=== PATIENT | female | born 1955 | race Caucasian/White ===

== ENCOUNTER 2022-01-11 10:13 | Outpatient (CLI) | payer MEDICARE, BC, SELFPAY ==
--- NOTE | 2022-01-11 10:15 | MR_ITS ---
Final Report Patient: ELLY HARRIS Facility:?[facility] Patient ID:?[id number] Site Patient ID:?[id number]. Site :?1955 Study:?MRI Head W/ and W/O Cont 15 cc DOTAREM-01/11/2022 12:25:42 PM Ordering Physician:?Daphne Juarez Final Report: INDICATION: Breast cancer. Staging. COMPARISON: Outside study 08/16/2017. TECHNIQUE: Multiplanar T1, T2, FLAIR and diffusion-weighted imaging. Post gadolinium T1 weighted sequences. FINDINGS: Normal brain parenchymal morphology. Scattered foci of T2/FLAIR signal hyperintense within the white matter again likely represents chronic small vessel ischemic changes or sequela migraine headache. Compared to the previous exam, there is a new 6 mm enhancing lesion of the inferior left frontal lobe (series 9, image 19) with surrounding vasogenic edema (series 6, image 19) concerning for new metastasis. No additional abnormal enhancement or enhancing lesions elsewhere. No intracranial hemorrhage. No abnormal ventricular dilatation. Intracranial vascular flow voids are preserved. No mass effect or midline shift. No restricted diffusion to suggest acute ischemia. Bilateral orbits are unremarkable. Normal appearing sella. Visualized paranasal sinuses and mastoid air cells are unremarkable. IMPRESSION: 1. No acute intracranial abnormality 2. 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 Associated surrounding vasogenic edema. 3. No additional abnormal enhancement or enhancing lesions elsewhere. 4. Normal brain parenchymal morphology. Scattered foci T2 signal within the white matter consistent with chronic small vessel ischemic changes or sequela of migraine headache Dictated by Bala Madrid MD @ 01/12/2022 7:52:29 AM (Electronic Signature)
== END 2022-01-11 10:14 | disposition home or self-care (01) ==
PROVIDERS: PCP Family Medicine; Visit Provider Internal Medicine Hematology & Oncology
DX: C50.212 Malignant neoplasm of upper-inner quadrant of left female breast (principal); C78.00 Secondary malignant neoplasm of unspecified lung
CPT/HCPCS: 70553; A9575

== ENCOUNTER 2022-01-13 10:30 | Outpatient (RCR) | payer MEDICARE, BC, SELFPAY ==
--- OUTSIDE RECORDS SUMMARY | 2022-01-07 09:32 | XMS_ITS | Continuity of Care Document ---
:1955 Author Care Team Providers Name Role Phone DO Lupe Garcia Primary Care Physician MD Candido Martel Admitting Physician Allergies, Adverse Reactions, Alerts Allergen Type Severity Reaction Last Updated Verified Status Adhesive Allergy Mild redness February 04, Yes Active 2019 Amoxicillin Allergy Moderate diarrhea May Yes Active 2020 Erythromycin Allergy Moderate NAUSEA June Yes Active 2017 Venlafaxine Allergy Moderate UNK June Yes Active 2017 Social History Smoking Status Status Start Date End Date Date of Observat ion Never smoked tobacco October 24, 2021 6:38pm (finding) Additional Data Assigned Sex Female Problems Active Problems Medical Problem Onset Date Status Breast cancer in female 1998 Active Medications Medication Status Dose Units Route Directions Qty Days Start End Ins tructions Date Date Acetaminophe Active 500-1 MG PO Every 6 100 n 000 Hours as needed Apixaban Active 5 MG PO Twice A Day 60 (Eliquis) 5 Mg TAB Benzonatate Active 200 MG PO Three Times 30 A Day as needed Carvedilol Active 12.5 MG PO Twice A Day 60 Cholecalcife Active 2000 UNIT PO Daily 100 rol (Vitamin D) 1,000 Unit TAB Fexofenadine Active 1 TAB PO Daily -Pseudoephed rine (Melba-D 24 Hour Allergy) 24 Hour TAB Fluticasone Active 2 SPRAY EACH Daily 1 Propionate NOSTR (Nasal) (Flonase Allergy Relief) 50 Mcg/Act SPR Levothyroxin Active 75 MCG PO Daily 30 e Sodium (Levothroid) 75 Mcg TAB Lisinopril Active 2.5 MG PO Daily 2.5 MG x 2 WEEKS DOSE INCREASE TO 5.0 MG ON 12/16 Loperamide Active 2 MG PO Every 1 24 MAX 16 MG/DAY Hcl Hour as needed Lorazepam Active 0.5 MG PO Twice A Day 20 Novembe i nsomnia due to dexamethasone or nausea, not controlled as needed r , with ond ansetron or prochlorperazine. Do not take at the 2020 same time as o pioids. Can be sedating. 11:26am Multiple Active 1 OR Daily Minerals W/ Vitamins (Citracal Plus) TAB Ondansetron Active 8 MG PO Three Times 30 Novembe Hcl A Day as r 29, (Ondansetron needed 2020 Odt) 8 Mg 11:22am TAB Oxycodone Active 1.25 MG PO Every 4 30 Hcl Hours as needed Pediatric Active 1 EA PO Multiple Vitamins W/ (Flintstones Plus Iron Mul) CHW Polyethylene Active 17 GM PO Daily 238 Not us ing Glycol 3350 (Miralax) 17 Gm POW Prochlorpera Active 10 MG PO Three Times 30 zine Maleate A Day as needed Acetaminophe Disconti 500 MG PO As Needed December n (Tylenol nued , Extra 2014 Strength) 2:10pm 500 Mg TAB Acetaminophe Disconti 325 MG PO As Needed Novemb n (Tylenol) nued er 325 Mg TAB 2005 4:08pm Acetaminophe Disconti 1-2 TAB PO Bedtime 100 Novembe Decemb start with one tablet for insomnia due to dexamethasone n/Diphenhydr nued r , er (chem o). If ineffective after 45-60 minutes, take one more amine Hcl 2020, tablet. (Tylenol Pm) 11:22am 2020 25 Mg/500 Mg 8:58am TAB Amoxicillin Disconti 1 TABLET PO Twice A Day 06 May No vemb & Pot nued , er Clavulanate 2009, (Augmentin) 12:25pm 2012 875 Mg/125 2:38pm Mg TAB Anastrozole Disconti 1 MG PO Daily October (Arimidex) 1 nued 3rd, Mg TAB 2017 8:49am Apixaban Disconti 5-10 MG PO .as Direc 74 Decemb 10 MG BID X 7 (Eliquis nued er DAYS THEN 5 MG Starter , BID Pack) 5 Mg 2020 TAB 8:58am Calcium Disconti 600 MG PO Daily Novemb Carbonate nued er (Calcium) , 600 Mg TAB 2020 10:08a m Carvedilol Disconti 3.125 MG PO Twice A Day 60 Novemb (Coreg) nued er 3.125 Mg TAB 2020 10:08a m Cholecalcife Disconti 2000 UNIT PO Daily 100 Februa rol (Vitamin nued ry D) 2,000 , Unit TAB 2015 3:35pm Cholecalcife Disconti 1000 UNIT OR Daily Novemb rol (Vitamin nued er D-1000) , 1,000 Unit 2012 TAB 2:38pm Dexamethason Disconti 4 MG PO Twice A Day 6 17 December Not taking e nued as needed 2021 9:10am Dexamethason Disconti 8 MG PO Habr6bnal 12 Decemb START DAY e nued er PRIOR TO CHEMO 2020 1:23pm Dexamethason Disconti 8 MG PO [id number] 12 Novembe Nove mb START DAY e nued r , er PRIOR TO CARMEN MO 2020, 12:29pm 2020 10:31a m Dulcolax Disconti 1 ID As Needed Decemb Suppository nued er 2020 8:58am Exemestane Disconti 25 MG PO Daily Februa (Aromasin) nued ry 25 Mg TAB 2013 11:16a m Fexofenadine Disconti 180 MG PO Daily 90 Novemb Hcl (Melba nued er Allergy) 180 1st, Mg TAB 2015 9:29am Fexofenadine Disconti 180 MG PO Daily 30 Februa Hcl nued ry 2014 3:01pm Fexofenadine Disconti 180 MG PO As Needed 30 Octobe Hcl nued r (Melba) 31, 180 Mg TAB 2005 1:42pm Fexofenadine Disconti 1 TAB PO Daily Novemb -Pseudoephed nued er rine , (Melba-D 2019 24 Hour 8:54am Allergy) 24 Hour TAB Hydrochlorot Disconti 12.5 MG PO Daily 30 Novemb hiazide nued er 2015 9:29am Ibuprofen Disconti 200-4 MG PO Every 6 January nued 00 Hours as , needed 2019 9:52am Ibuprofen Disconti 600 MG PO As Needed 1 Februa nued ry 2015 3:35pm Ibuprofen Disconti 400 MG PO Once 1 Novemb nued er 2012 2:38pm Ibuprofen Disconti 1 TABLET PO As Needed Novem nued er 2005 4:08pm Lactobacillu Disconti 1 OR Miriam s nued , (Probiotic) 2017 CAP 12:28p m Letrazole Disconti 2.5 MG Daily Novemb nued er 2012 2:38pm Letrozole Disconti 2.5 MG PO January (Femara) 2.5 nued , Mg TAB 2019 9:52am Levofloxacin Disconti 750 MG PO Daily 19 December nued 2021 9:10am Lidocaine Disconti 4 % EX Daily September Not Usi ng nued November use 1-2 pa tches daily. On for 12 hours, off for 12 2021 2021 hours. Do NOT apply heat over patches. 2:30pm 9:31am Lidocaine Disconti 4 % EX Daily September u se 1-2 patches daily. On for 12 hours, off for nued r , , hours. Do NO T apply heat over patches. 2020 2021 11:22am 2:30pm Loperamide Disconti 2 MG PO As Needed Novemb Hcl (Imodium nued er A-D) 2 Mg , 2020 10:30a m Loratadine Disconti 10 MG OR Daily December (Claritin) nued , 10 Mg CAP 2017 12:28p m Lorazepam Disconti 0.5 MG PO Three Times 90 Decemb nued A Day as er needed 2017 10:24a m Multiple Disconti 1 OR October Minerals W/ nued , Vitamins 2021 (Citracal 11:02a Plus) TAB m Naproxen Disconti 220 MG OR as needed December Sodium nued for , (Aleve) 220 Abdominal 2014 Mg CAP Pain 2:10pm Norethindron Disconti 1 EA PO Daily Novemb e-Ethinyl nued er Estradiol , () 2005 (Nortrel 4:08pm (28)) 1 Mg/0.035 Mg TAB Mcclv-2-Qzyb Disconti 500 MG PO Daily October Ethyl Esters nued , (Fish Oil) 2017 500 Mg CAP 8:49am Omeprazole Disconti 20 MG PO Daily December nued 2021 8:15am Ondansetron Disconti 8 MG PO Every 8 30 Novemb Hcl nued Hours as er needed 2020 11:22a m Ondansetron Disconti 8 MG PO Three Times 30 Decem b Hcl nued A Day as er (Ondansetron needed , Odt) 8 Mg 2017 TAB 10:24a m Palbociclib Disconti 75 MG PO Daily 21 Novemb DAYS 1-21, (Ibrance) 75 nued er EVERY 2 8 DAYS Mg CAP 2020 9:57am Prochlorpera Disconti 10 MG PO Every 4-6 30 Decemb PRN zine Maleate nued Hours as er Naus ea/vomitin needed , 2017 10:24a m Senna/Docusa Disconti 1 TAB PO Twice A Day 100 Dece mb te Sodium nued er (Senna S) , 8.6 Mg/50 Mg 2020 TAB 8:58am Vitamin E Disconti 400 UNIT PO Daily 100 Februa nued ry 2013 2:20pm Medical Equipment Device Date Implanted Device Details TECNIS IOL June 27, 2018 ROSA: [id number] Issuing Agency: [facility] Device Id: [id number] Expiration Date: 07-28-12 Serial Number: [id number] TECNIS IOL July 11, 2018 ROSA: [id number] Issuing Agency: [facility] Device Id: [id number] Expiration Date: 08-23-09 Serial Number: [id number] Relevant Diagnostic Tests and/or Laboratory Data Laboratory Results Test Date/Time Result Interpretation Reference Result Comment Performing Range Site White Blood December 02, 4.11 5.00-10.00 [facility] Count 2021 [address] [facility] 8:45am [facility] [address] Red Blood Count December 02, 4.48 3.90-5.03 [facility] 2021 [address] [facility] 8:45am [facility] [address] Hemoglobin December 02, 11.4 12.0-15.5 [facility] 2021 [address] [facility] 8:45am [place] [address] Hematocrit December 02, 37.4 34.9-44.5 [facility] 2021 [address] [facility] 8:45am [place] [address] Mean December 02, 84 82-98 [facility] Corpuscular 2021 [address] [facility] Volume 8:45am [place] [address] Mean December 02, 25 27-34 [facility] Corpuscular 2021 [address] [facility] Hemoglobin 8:45am [place] [address] Mean December 02, 31 32-36 [facility] Corpuscular 2021 [address] [facility] Hemoglobin 8:45am [place] [address] Concent Platelet Count December 02, 215 150-450 [facility] 2021 [address] [facility] 8:45am [place] [address] RDW Coefficient December 02, 17.0 11.5-15.3 [facility] of Variation 2021 1999 [email or web address] 8:45am [place] [address] Neutrophils (%) December 02, 66.1 50.0-70.0 [facility] (Auto) 2021 [address] [facility] 8:45am [place] [address] Lymphocytes (%) December 02, 22.9 25.0-45.0 [facility] (Auto) 2021 [address] [facility] 8:45am [place] [address] Monocytes (%) December 02, 7.8 0.00-11.0 [facility] (Auto) 2021 [address] [facility] 8:45am [place] [address] Eosinophils (%) December 02, 2.7 0.0-7.0 [facility] (Auto) 2021 [address] [facility] 8:45am [place] [address] Basophils (%) December 02, 0.5 0.0-3.0 [facility] (Auto) 2021 [address] [facility] 8:45am [place] [address] Immature December 02, 0.0 [facility] Granulocyte % 2021 [address] [facility] (Auto) 8:45am [place] [address] Neutrophils # December 02, 2.72 1.70-7.00 [facility] (Auto) 2021 [address] [facility] 8:45am [facility] [address] Lymphocytes # December 02, 0.94 0.90-2.90 [facility] (Auto) 2021 [address] [facility] 8:45am [facility] [address] Monocytes # December 02, 0.32 0.30-0.90 [facility] (Auto) 2021 [address] [facility] 8:45am [facility] [address] Eosinophils # December 02, 0.11 0.00-0.50 [facility] (Auto) 2021 [address] [facility] 8:45am [facility] [address] Basophils # December 02, 0.02 0.00-0.20 [facility] Lab (Auto) 2021 [address] [facility] 8:45am [facility] [address] Immature December 02, 0.00 [facility] Granulocyte # 2021 [address] [facility] (Auto) 8:45am [facility] [address] Random Glucose December 02, 128 60-115 [facility] 2021 [address] [facility] 8:45am [facility] [address] Blood Urea December 02, 12 7-30 [facility] Nitrogen 2021 [address] [facility] 8:45am [facility] [address] Creatinine December 02, 0.5 0.5-1.5 [facility] 2021 [address] [facility] 8:45am [facility] [address] Estimated December 02, 94.0287 [facility] Creatinine 2021 0 1999 [facility] [place] 8:45am [facility] [address] Sodium Level December 02, 137 135-149 [facility] 2021 [address] [facility] 8:45am [facility] [address] Potassium Level December 02, 3.5 3.6-5.1 [facility] 2021 [address] [facility] 8:45am [facility] [address] Chloride Level December 02, 100 96-114 [facility] 2021 [address] [facility] 8:45am [facility] [address] Carbon Dioxide December 02, 29 20-32 [facility] Level 2021 [address] [facility] 8:45am [facility] [address] Calcium Level December 02, 9.1 8.4-10.6 [facility] 2021 [address] [facility] 8:45am [facility] [address] Total Protein December 02, 6.5 6.0-8.3 The use of [facility] 2021 Eltrombopag, a [address] [facility] 8:45am [place] [address] stimulant used to treat thrombocytopenia and aplastic anemia, interferes with this measurement of total protein. A 5% bias has been observed. Albumin December 02, 3.7 3.3-5.0 [facility] 2021 [address] [facility] 8:45am [facility] [address] Total Bilirubin December 02, 0.4 0.1-1.5 [facility] 2021 [address] [facility] 8:45am [place] [address] Aspartate Amino December 02, 27 12-35 [facility] Transf 2021 [address] [facility] (AST/SGOT) 8:45[place] [address] Alanine December 02, 18 4-35 [facility] Aminotransferas 2021 [address] [facility] e (ALT/SGPT) 8:45am [place] [address] Alkaline December 02, 55 40-150 [facility] Phosphatase 2021 [address] [facility] 8:45am [place] [address] Advance Directives Advance Directive Response Recorded Date/Time Has patient completed a Yes October 24, 2021 6:38pm Health Care Directive? Insurance Providers Guarantor Donna Garcia Address [address] [address] [facility] [address] Contact Info. Home Phone: Payer Policy Id Coverage Id Subscriber's Subscriber Id Effective E xpiration Name Date Date Medicare [id number] Jose, [id number] 23 Donna Tubbs [facility] [id number] Jackson Garcia [id number] Donna Tubbs Encounters Encounter Location(s) Arrival/Admit Date Discharge/Depart Date Provider(s) Registered [place] December 27, 2021 [facility] 7:08am Plan of Treatment Future Tests Future scheduled test information is unavailable Pending Tests Pending diagnostic test information is unavailable Future Visits Future appointment information is unavailable Referrals to Other Providers Reason for Referral Start Provider Provider Contact Provider Address Referral Date Information Gretel Garcia Work Phone: DAVID ELKINS [facility] DO [address] [facility] 5 [phone] Clinic, Orthopedic & Fracture Future Procedures Procedure Name Scheduled Date CT Sinus/Maxilo W/O Future Medications Future medication information is unavailable Patient Instructions Abscess (ED)
--- NOTE | 2022-01-12 14:53 | URNOTE ---
Received request for prior auth for Aloxi ([id number]) and Enhertu ([id number]). Pt has Medicare and supplement. Prior auth is not required as services are based on medical necessity and follow medicare guidelines.
== END 2022-01-13 23:59 | disposition home or self-care (01) ==
LOC: CCIC 10:30
PROVIDERS: PCP Family Medicine; Visit Provider Nurse Practitioner Family
DX: C50.912 Malignant neoplasm of unspecified site of left female breast (principal); Z17.0 Estrogen receptor positive status [ER+]; G93.9 Disorder of brain, unspecified
CPT/HCPCS: 99212; 99215

== ENCOUNTER 2022-01-24 13:01 | Emergency (ER) | payer MEDICARE, BC, SELFPAY ==
[2022-01-24] VITALS (7 sets, daily range): BP systolic 95–148; BP diastolic 64–95; PULSE 77–88; RESP 12–18; TEMP 36.5; O2SAT 94–98; BMI 19.1
--- NOTE | 2022-01-24 14:58 | CRLHL7_ITS ---
For Patients: As a result of the 21st Century Cures Act, medical imaging exams and procedure reports are released immediately into your electronic medical record. You may view this report before your referring provider. If you have questions, please contact your health care provider. INDICATION: Abdominal pain and distention. History of cancer. COMPARISON: A remote PET-CT of April 04, 2019 TECHNIQUE: CT examination of the abdomen and pelvis was performed following the uneventful intravenous administration of 53 cc of Isovue 370. Thin section axial images were obtained from the lung bases through the pubic symphysis. Oral contrast was not administered. Please note that all CT scans at this facility use dose modulation, iterative reconstruction, and/or weight-based dosing when appropriate to reduce radiation dose to as low as reasonably achievable. FINDINGS: LUNG BASES: The heart size is normal at the lung bases.There is a small right effusion but the right lung base appears normal. There is diffuse masslike thickening the pleura at the left lung base with abnormal enhancement of the pleura and volume loss at the left lung base. This is likely neoplastic. LIVER/BILIARY SYSTEM:The liver is normal in size and configuration. There is no focal mass and there is no intra- or extra hepatic biliary ductal dilatation.The gall bladder appears normal. ADRENALS: The right adrenal gland is normal. There is nodularity of the left adrenal gland which is new since 2019 and may be malignant. This measures 2.8 x 1.8 centimeters on axial image 41 KIDNEYS, URETERS and BLADDER:The right kidney is unremarkable. There is a relatively large left renal cyst measuring 6.5 centimeters. No obstructive uropathy. The bladder appears normal. SPLEEN:Normal appearance. PANCREAS: Appears normal. RETROPERITONEUM and MESENTERY: There is no mass, adenopathy or aortic aneurysm. Atherosclerotic vascular calcifications GASTROINTESTINAL SYSTEM: Fecal retention without indication of mechanical obstruction. PELVIS: There is ascites in the abdomen and a specially in the pelvis and there is clearly visible tumor in the cul de sac. This is relatively diffuse but a focal mass on the right measures 4.4 x 5.0 centimeters. There is also a peritoneal carcinomatosis pattern with multiple nodules involving the omentum and peritoneal surfaces. This is consistent with metastatic disease. Somewhat unusual for breast cancer which is the patient`s primary. This pattern is usually associated with an intra-abdominal adenocarcinoma. OSSEOUS STRUCTURES and ABDOMINAL WALL: There is an age-appropriate appearance of the osseous structures.No significant abdominal wall defect. OTHER: No free fluid or free air. IMPRESSION: 1. 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 The lung finding is probably volume loss. There is a small right effusion with minimal right basilar atelectasis. 2. Mild ascites and masslike thickening of the peritoneal surfaces of the pelvis. Measurable mass is noted with the largest measuring 4.4 x 5.0 centimeters in the right pelvis. Elsewhere in the abdomen and pelvis, there is omental caking and peritoneal surface nodularity consistent with peritoneal carcinomatosis. 3. No obvious osseous metastatic disease 4. Left adrenal nodule suspect metastatic deposit 5. The carcinomatosis pattern is somewhat unusual for stage IV breast cancer though it is possible. The appearance is more reminiscent of an intra-abdominal adenocarcinoma. Please note that all CT scans at this facility use dose modulation, iterative reconstruction, and/or weight-based dosing when appropriate to reduce radiation dose to as low as reasonably achievable. Dictated by Miguel Hinds MD @ 01/24/2022 4:46:13 PM (Electronically Signed)
--- NOTE | 2022-01-24 15:00 | ED_ITS ---
HPI - General Adult General Chief complaint: Nausea/Vomiting Stated complaint: [facility] pt, Vomiting Time Seen by Provider: 01/24/22 13:41 History of Present Illness HPI narrative: This 66-year-old female has cancer and recently had chemotherapy and gamma knife treatment. She is taking a small dose of oxycodone every 4 hours and comes in reporting no bowel movement for 7 days. She feels that her abdomen is distended and has diffuse episodes of pain throughout her abdomen. She states that the cancer has spread into her abdomen and wonders if she is obstructed. She has not taken much by mouth by way of drink or food because of these symptoms. Related Data Home Medications Medication Instructions Recorded Confirmed apixaban 5 mg (74 tabs) tablets in 5 mg PO BID 01/10/22 01/21/22 a dose pack ([employer] DVT-PE Treat 30D Start) carvedilol 12.5 mg tablet 12.5 mg PO BID 01/10/22 01/21/22 cholecalciferol (vitamin D3) 50 2,000 unit PO DAILY 01/10/22 01/21/22 mcg (2,000 unit) capsule (D3-1999) fluticasone propionate 50 2 inh INHALATION DAILY 01/10/22 01/21/22 mcg/actuation blister powder for inhalation levothyroxine 75 mcg tablet 75 mcg PO DAILY 01/10/22 01/21/22 lisinopril 2.5 mg tablet 5 mg PO DAILY 01/10/22 01/20/22 loperamide 2 mg capsule 2 mg PO Q1H PRN 01/10/22 01/21/22 lorazepam 0.5 mg tablet 0.5 mg PO BID PRN 01/10/22 01/21/22 oxycodone 5 mg tablet 2.5 mg PO Q4H PRN 01/10/22 01/21/22 polyethylene glycol 3350 17 17 g PO DAILY 01/10/22 01/21/22 gram/dose oral powder buprenorphine 5 mcg/hour weekly 1 patch TRANSDERMAL Q7D 01/13/22 01/21/22 transdermal patch calcium carbonate 300 mg (750 mg) 300 mg PO QDAY tab 01/13/22 01/21/22 chewable tablet (Antacid Extra Strength (calcium carb)) fexofenadine-pseudoephedrine ER 1 tab PO DAILY PRN 01/13/22 01/21/22 180 mg-240 mg tablet,ext.release 24 hr (Melba-D 24 Hour) Pediatric Multiple Vitamins PO DAILY 01/20/22 prochlorperazine maleate 10 mg 10 mg PO TID PRN 01/20/22 01/20/22 tablet Previous Rx's Medication Instructions Recorded ondansetron 8 mg disintegrating 8 mg PO Q8H PRN #90 tab 01/13/22 tablet Allergies Allergy/AdvReac Type Severity Reaction Status Date / Time amoxicillin Allergy Intermediate Diarrhea Verified 01/10/22 14:10 erythromycin base Allergy Intermediate Nausea Verified 01/10/22 14:10 adhesive Allergy Mild Verified 01/21/22 08:45 venlafaxine Allergy Unknown Verified 01/10/22 14:10 Review of Systems Status of ROS: Reports: 10 or more systems reviewed and unremarkable except as noted in History and below Narrative: Constitutional: No fevers, no weight gain or loss. Eyes: No discharge. No vision changes. HENT: No congestion, no sore throat, no ear pain. Cardiovascular: No chest pain, no palpitations. Respiratory: No shortness of breath, no wheezes, no cough. Gastrointestinal: Diffuse abdominal pain. Nausea with some vomiting. No diarrhea. No bowel movement for 7 days. Genitourinary: No dysuria, no hematuria. Musculoskeletal: Normal range of motion. Skin: No rashes, no pruritis. Neurological: No dizziness, weakness, sensory change, speech change. Endo/Heme/Allergies: No bruising or bleeding. No polydipsia. Pysch: no suicidality, no anxiety, no insomnia. All other systems reviewed and are negative. [facility] Medical History Basal cell carcinoma (BCC) Encounter for care related to Port-a-Cath Pulmonary emboli Surgical History S/P cataract surgery Social History Smoking Status: Never smoker How often do you have a drink containing alcohol: never AUDIT-C Alcohol total score: 0 Non-prescribed substance use: denies use Exam Narrative: Exam Narrative: Constitutional: Well-developed, well-nourished, no acute distress. HEENT: Normocephalic, atraumatic. Neck: Normal range of motion. Nontender. Supple. Heart: Regular. No murmurs. Normal rate. Intact distal pulses. Lungs: Clear to auscultation. No chest discomfort. No wheezes, rhonchi, or rales. Abdomen: Some occasional high-pitched bowel sounds. Diffuse tenderness and distension. Genitalia: Deferred. Back: No midline tenderness. Normal range of motion. Extremities: Normal range of motion. No injury. Skin: Intact. No rash. Warm. No erythema or pallor. Neurologic: No altered sensation. No weakness. Alert and oriented. Psychiatric: No suicidality. No anxiety or depression. No insomnia. Nursing notes and vitals signs are reviewed. Const: Vital Signs, click to edit/add: Vital Signs - 24 hr 01/24/22 13:31 01/24/22 15:20 01/24/22 15:30 Temperature 97.7 F Pulse Rate [Right Pulse Oximeter] 84 77 Respiratory Rate 18 12 Blood Pressure [Ri ght Upper Arm] 95/64 123/77 127/74 Pulse Oximetry 96 94 01/24/22 16:19 01/24/22 16:30 01/24/22 17:00 Temperature Pulse Rate [Right Pulse Oximeter] 81 88 88 Respiratory Rate 14 14 14 Blood Pressure [Ri ght Upper Arm] 138/80 135/83 134/95 H Pulse Oximetry 98 97 98 01/24/22 17:30 Temperature Pulse Rate [Right Pulse Oximeter] 83 Respiratory Rate 14 Blood Pressure [Ri ght Upper Arm] 148/84 H Pulse Oximetry 97 Course Vital Signs Vital signs: Initial Vital Signs Temperature 97.7 F 01/24/22 13:31 Temperature Source Temporal Artery Scan 01/24/22 13:31 Pulse Rate 84 01/24/22 13:31 Respiratory Rate 18 01/24/22 13:31 Blood Pressure 95/64 01/24/22 13:31 Blood Pressure Mean 74 01/24/22 13:31 Blood Pressure Position Sitting 01/24/22 13:31 Pulse Oximetry 96 01/24/22 13:31 Oxygen Delivery Method 01/24/22 13:31 Vital Signs Temperature 97.7 F 01/24/22 13:31 Pulse Rate 84 01/24/22 13:31 Respiratory Rate 18 01/24/22 13:31 Blood Pressure 95/64 01/24/22 13:31 Pulse Oximetry 96 01/24/22 13:31 Temperature 97.7 F 01/24/22 13:31 Pulse Rate 83 01/24/22 17:30 Respiratory Rate 14 01/24/22 17:30 Blood Pressure 148/84 H 01/24/22 17:30 Pulse Oximetry 97 01/24/22 17:30 Medical Decision Making MDM Narrative Medical decision making narrative: This patient comes in with report of constipation with no bowel movement for the last 7 days. She wonders if she might be obstructed. She does have breast cancer that is metastatic. She is undergoing chemotherapy and is taking oxycodone 2.5 mg every [address] hours for pain[address] A [address] scan of the abdomen and pelvis is done to rule out obstruction or other complication that may be contributing to her constipation. There are lots of abnormalities in this study but none of them are new to the patient as I described the findings from the radiology report. She has a team above oncologist that she is working with to attend to these matters. Patient then received a pink lady enema which brought great results. She feels much better. I did discuss various options for managing and treating constipation. Lab Data Labs: Lab Results 01/24/22 01/24/22 Range/Units 15:15 15:15 WBC 5.41 (4.50-11.00) K/uL RBC 4.76 (4.00-5.20) m/uL Hgb 12.1 (12.0-16.0) gm/dL Hct 38.7 (33.0-51.0) % MCV 81 (80-100) fL MCH 25 L (26-34) pg MCHC 31 L (32-36) gm/dL RDW Coeff of Mireya 17.0 H (11.5-15.5) % Plt Count 281 (140-440) K/uL Neut % (Auto) 81.4 H (42.0-72.0) % Lymph % (Auto) 15.5 L (20-44) % Walton % (Auto) 2.0 (0.0-11.0) % Eos % (Auto) 0.7 (0.0-7.0) % Baso % (Auto) 0.2 (0.0-3.0) % Neut # (Auto) 4.40 (1.7-7.0) K/uL Lymph # (Auto) 0.80 L (0.90-2.90) K/uL Walton # (Auto) 0.10 (0.00-0.90) K/UL Eos # (Auto) 0.04 (0.00-0.50) K/uL Baso # (Auto) 0.01 (0.00-0.30) K/uL Abs Immat Gran (auto) 0.01 (0.00-0.30) K/uL Sodium 130 L (135-149) mmol/L Potassium 4.2 (3.6-5.1) mmol/L Chloride 98 (96-114) mmol/L Carbon Dioxide 28 (20-32) mmol/L BUN 18 (7-30) mg/dL Creatinine 0.5 (0.5-1.5) mg/dL Estimated Creat Clear 43.95 Glucose 86 (60-115) mg/dL Calcium 8.8 (8.4-10.6) mg/dL Imaging Data CT scan - abdomen: Radiologist's impression: 1. 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 The lung finding is probably volume loss. There is a small right effusion with minimal right basilar atelectasis. 2. Mild ascites and masslike thickening of the peritoneal surfaces of the pelvis. Measurable mass is noted with the largest measuring 4.4 x 5.0 centimeters in the right pelvis. Elsewhere in the abdomen and pelvis, there is omental caking and peritoneal surface nodularity consistent with peritoneal carcinomatosis. 3. No obvious osseous metastatic disease 4. Left adrenal nodule suspect metastatic deposit 5. The carcinomatosis pattern is somewhat unusual for stage IV breast cancer though it is possible. The appearance is more reminiscent of an intra-abdominal adenocarcinoma. Discharge Plan Discharge Clinical Impression: Invasive ductal carcinoma of left breast, stage 4, Constipation Condition: Improved Instructions: Constipation (ED) Additional Instructions: For ongoing management of constipation use [id number] medicines such as Metamucil, Citrucel, Benefiber, MiraLax, Dulcolax, bisacodyl sodium, magnesium citrate, milk of magnesia, suppositories, and enemas as needed and directed. Prescriptions: No Action calcium carbonate [Antacid Ext Str (calcium carb)] 300 mg (750 mg) tablet,chewable 300 mg PO QDAY 0RF buprenorphine 5 mcg/hour patch weekly 1 patch transdermal Q7D 0RF ondansetron 8 mg tablet,disintegrating 8 mg PO Q8H PRN (Reason: nausea and vomiting) Qty: 90 2RF Eliquis DVT-PE Treat 30D Start 5 mg (74 tabs) tablets,dose pack 5 mg PO BID 0RF Label Comments: TAKE 2 TABLETS BY MOUTH TWICE DAILY THROUGH 06/03 THEN ON 06/04 TAKE 1 TABLET TWICE DAILY carvedilol 12.5 mg tablet 12.5 mg PO BID 0RF levothyroxine 75 mcg tablet 75 mcg PO DAILY 0RF lisinopril 2.5 mg tablet 5 mg PO DAILY 0RF lorazepam 0.5 mg tablet 0.5 mg PO BID PRN0RF Label Comments: 0.5 MG PO BID PRN insomnia due to dexamethasone or nausea, not controlled with ondansetron or prochlorperazine. Do not take at the same time as opioids. Can be sedating. oxycodone 5 mg tablet 2.5 mg PO Q4H PRN0RF polyethylene glycol 3350 17 gram/dose powder 17 g PO DAILY 0RF Label Comments: TAKE 17 GRAMS BY MOUTH DAILY. MAY INCREASE TO TWICE DAILY NEEDED FOR CONSTIPATION. DISSOLVE IN 240 MLS OF BEVERAGE cholecalciferol (vitamin D3) [D3-2000] 50 mcg (2,000 unit) capsule 2,000 unit PO DAILY 0RF fluticasone propionate 50 mcg/actuation blister with device 2 inh inhalation DAILY 0RF loperamide 2 mg capsule 2 mg PO Q1H PRN0RF Rx Instructions: administer after each loose stool until symptoms controlled; do not exceed 8 mg per 24 hrs fexofenadine-pseudoephedrine [Melba-D 24 Hour] 180-240 mg tablet extended release 24 hr 1 tab PO DAILY PRN (Reason: allergy symptoms) 0RF prochlorperazine maleate 10 mg tablet 10 mg PO TID PRN0RF Pediatric Multiple Vitamins PO DAILY 0RF Rx Instructions: Flinstones Plus Iron Multivit Follow Up/Referrals: Gretel Garcia DO [Primary Care Provider] - Stand Alone Forms: [facility] Info Inst[facility]
[2022-01-24] MEDS: 0.9 % SODIUM CHLORIDE 1000 ml 1,000 ML IV (15:22)
[2022-01-24 15:29] LABS: Basophils Absolute Auto 0.01 K/uL (0.00-0.30); Basophils Percent Auto 0.2 % (0.0-3.0); Eosinophils Absolute Auto 0.04 K/uL (0.00-0.50); Eosinophils Percent Auto 0.7 % (0.0-7.0); Hematocrit 38.7 % (33.0-51.0); Hemoglobin* 12.1 gm/dL (12.0-16.0); Immature Granulocytes Abs Auto 0.01 K/uL (0.00-0.30); Lymphocytes Percent Auto 15.5 % (20-44); Mean Corpuscular HGB Conc 31 gm/dL (32-36); Mean Corpuscular Hemoglobin 25 pg (26-34); Mean Corpuscular Volume 81 fL (80-100); Neutrophils Percent Auto 81.4 % (42.0-72.0); Platelet Count* 281 K/uL (140-440); Red Blood Count 4.76 m/uL (4.00-5.20); White Blood Count* 5.41 K/uL (4.50-11.00)
[2022-01-24 15:43] LABS: Chloride* 98 mmol/L (96-114); Potassium* 4.2 mmol/L (3.6-5.1); Sodium* 130 mmol/L (135-149)
[2022-01-24 15:45] LABS: Creatinine* 0.5 mg/dL (0.5-1.5); Est. Creatinine Clearance* 43.95; Estimated Glomerular Filt Rate 104.67
[2022-01-24 15:46] LABS: Blood Urea Nitrogen* 18 mg/dL (7-30); Calcium* 8.8 mg/dL (8.4-10.6); Carbon Dioxide* 28 mmol/L (20-32); Glucose* 86 mg/dL (60-115)
[2022-01-24 16:00] LABS: Slide Review Reflex No
--- NOTE | 2022-01-24 16:31 | ED.NURSE ---
Pt requesting water. Okayed with and brought to pt.
[2022-01-24] MEDS: OXYCODONE 5 MG TABLET 2.5 MG PO (17:56)
[2022-01-24] MEDS: DOC/MIN OIL/MAG CIT/SOD PHOS 376 ML ENEMA PR (18:13)
--- NOTE | 2022-01-24 18:43 | ED.NURSE ---
Pt defecates large amount of brown, soft stool following enema. Pt reports she has immediate relief. MD updated.
[2022-01-24] MEDS: HEPARIN 500 UNIT/5 ML SYRINGE IVF (19:09)
== END 2022-01-24 19:16 | disposition home or self-care (01) ==
PROVIDERS: Emergency Provider Emergency Medicine Emergency Medical Services; PCP Family Medicine
DX: K59.00 Constipation, unspecified (principal); D05.91 Unspecified type of carcinoma in situ of right breast
CPT/HCPCS: 36415; 74177; 80048; 85025; 96360; 99285; A9270; J1642; J7030; Q9967

== ENCOUNTER 2022-02-10 08:15 | Outpatient (RCR) | payer MEDICARE, BC, SELFPAY ==
[2022-01-20 14:30] LABS: Basophils Absolute Auto 0.01 K/uL (0.00-0.30); Basophils Percent Auto 0.1 % (0.0-3.0); Hematocrit 37.5 % (33.0-51.0); Hemoglobin* 11.9 gm/dL (12.0-16.0); Immature Granulocytes Abs Auto 0.11 K/uL (0.00-0.30); Lymphocytes Percent Auto 9.7 % (20-44); Mean Corpuscular HGB Conc 32 gm/dL (32-36); Mean Corpuscular Hemoglobin 26 pg (26-34); Mean Corpuscular Volume 82 fL (80-100); Monocytes Percent Auto 7.4 % (0.0-11.0); Neutrophils Percent Auto 81.8 % (42.0-72.0); Platelet Count* 307 K/uL (140-440); RDW Coefficient of Variation % 17.2 % (11.5-15.5); Slide Review Reflex No; White Blood Count* 10.53 K/uL (4.50-11.00)
[2022-01-20 14:41] LABS: Albumin* 3.7 g/dL (3.3-5.0); Chloride* 99 mmol/L (96-114); Potassium* 4.2 mmol/L (3.6-5.1); Sodium* 134 mmol/L (135-149)
[2022-01-20 14:44] LABS: Alanine Aminotransferase* 12 U/L (4-35); Alkaline Phosphatase* 62 U/L (40-150); Aspartate Amino Transferase* 21 U/L (12-35); Bilirubin Total* 0.5 mg/dL (0.1-1.5); Blood Urea Nitrogen* 12 mg/dL (7-30); Carbon Dioxide* 28 mmol/L (20-32); Creatinine* 0.5 mg/dL (0.5-1.5); Estimated Glomerular Filt Rate 104.67; Glucose* 131 mg/dL (60-115); Total Protein* 6.2 g/dL (6.0-8.3)
[2022-01-20 14:45] LABS: Calcium* 9.4 mg/dL (8.4-10.6)
--- NOTE | 2022-01-20 16:35 | ONC.NURNOTE ---
Breast Luncheonette Operator Note (Possible duplicate; previous note not saved correctly.) Pt here today for labs and teaching for beginning Enhertu tomorrow. Pt had Gamma Knife completed yesterday; feeling well after that procedure. Pt notes increased pain in left posterior trunk today and attributes that to positioning for procedures and scans yesterday. She takes oxycodone 2.5 mg (1/2 of 5mg tab) for pain and will begin a Butrans patch when available in her pharmacy in hopes of reducing the amount/frequency of Oxycodone she needs for breakthrough pain. Palliative Care in [facility] is managing her pain. F/u heart echo at [facility] per Cardio-Oncology on 01/28/22. F/u with Dr. Serna on 02/10 with C2. Reviewed Enhertu administration, mechanism of action, side effects and self care with patient and her . Handouts given; questions answered. For antiemetic management at home pt plans to use Zofran ODT, as she has had good coverage with it in the past. Pt continues to struggle with low appetite; noted some improvement of tolerating food when using Zofran ODT prior to meals. She denies nausea/vomiting but feels full quickly. Continues to snack and be intentional about oral intake. Recommended increasing wet foods, i.e. fruit, applesauce, yogurt, ice cream/frozen yogurt, pudding, soup, to increase hydration. Pt currently struggles with constipation d/t varying use of oxycodone. She uses Senna and Miralax (1/2 packet) as needed; plans to increase Miralax to full packet daily.
[2022-01-21 08:27] VITALS: BP 109/69; PULSE 81; RESP 16; TEMP 35.5; O2SAT 94
[2022-01-21] MEDS: ACETAMINOPHEN 325 MG TABLET 650 MG PO (08:48)
[2022-01-21] MEDS: dexAMETHasone 20 MG in 0.9 % SODIUM CHLORIDE 100 ml 100 ML 408 MG IVPB (09:09)
[2022-01-21] MEDS: PALONOSETRON 0.25 MG/5 ML inj IV (09:09)
[2022-01-21] MEDS: diphenhydrAMINE 25 MG in 0.9 % SODIUM CHLORIDE 100 ml 100 ML 402 MG IVPB (09:31)
[2022-01-21] MEDS: SODIUM CHLORIDE 0.9 % (FLUSH) 10 ML SYRINGE IVF (11:32)
[2022-01-21] MEDS: HEPARIN 500 UNIT/5 ML SYRINGE IVF (11:33)
--- NOTE | 2022-01-21 11:51 | ONC.NURNOTE ---
Pt here for cycle 1 Enhertu. Pt tolerated infusion well without difficulty, only sleepy from benadryl. Pt verbalized plan of care, and when to take antiemetics if needed. Breast manager progressive care will follow up on 01/24/22 with pt to see how she is feeling.
[2022-02-10 08:39] LABS: Basophils Percent Auto 0.4 % (0.0-3.0); Eosinophils Percent Auto 3.5 % (0.0-7.0); Hematocrit 36.4 % (33.0-51.0); Hemoglobin* 11.5 gm/dL (12.0-16.0); Immature Granulocytes Abs Auto 0.01 K/uL (0.00-0.30); Lymphocytes Percent Auto 45.1 % (20-44); Mean Corpuscular HGB Conc 32 gm/dL (32-36); Mean Corpuscular Hemoglobin 26 pg (26-34); Mean Corpuscular Volume 82 fL (80-100); Monocytes Percent Auto 16.8 % (0.0-11.0); Neutrophils Percent Auto 33.8 % (42.0-72.0); Platelet Count* 285 K/uL (140-440); RDW Coefficient of Variation % 18.3 % (11.5-15.5); Red Blood Count 4.44 m/uL (4.00-5.20); White Blood Count* 2.26 K/uL (4.50-11.00)
[2022-02-10 08:42] LABS: Slide Review Reflex No
[2022-02-10 08:56] LABS: Albumin* 3.3 g/dL (3.3-5.0); Chloride* 104 mmol/L (96-114); Potassium* 3.7 mmol/L (3.6-5.1); Sodium* 136 mmol/L (135-149)
[2022-02-10 08:58] LABS: Bilirubin Total* 0.3 mg/dL (0.1-1.5); Creatinine* 0.5 mg/dL (0.5-1.5); Estimated Glomerular Filt Rate 105 ml/min
[2022-02-10 08:59] LABS: Alanine Aminotransferase* 15 U/L (4-35); Alkaline Phosphatase* 60 U/L (40-150); Aspartate Amino Transferase* 21 U/L (12-35); Blood Urea Nitrogen* 12 mg/dL (7-30); Calcium* 9.3 mg/dL (8.4-10.6); Carbon Dioxide* 30 mmol/L (20-32); Glucose* 93 mg/dL (60-115)
[2022-02-10] MEDS: HEPARIN 500 UNIT/5 ML SYRINGE IVF (10:01)
[2022-02-10] MEDS: SODIUM CHLORIDE 0.9 % (FLUSH) 10 ML SYRINGE IVF (10:01)
== END 2022-02-13 23:59 | disposition home or self-care (01) ==
LOC: CCIC 08:15
PROVIDERS: Clinical Nurse Specialist; PCP Family Medicine; Visit Provider Internal Medicine Hematology & Oncology
DX: C50.912 Malignant neoplasm of unspecified site of left female breast (principal)
CPT/HCPCS: 36415; 36591; 80053; 85025; 96376; 96413; 96415; 99212; 99215; A9270; J1100; J1200; J1642; J2469; J9358

== ENCOUNTER 2022-06-16 09:37 | Outpatient (CLI) | payer MEDICARE, BC, SELFPAY ==
--- NOTE | 2022-06-16 | CRLHL7_ITS ---
For Patients: As a result of the Cures Act, medical imaging exams and procedure reports are released immediately into your electronic medical record. You may view this report before your referring provider. If you have questions, please contact your health care provider. PLEASE SEE DIGITAL DIAGNOSTIC BILATERAL MAMMOGRAM PERFORMED SAME DAY CRL:[email or web address] [email or web address]/Dictated by: Dylan Haider MD @ 06/16/2022 11:26:00 AM (Electronically Signed)
--- NOTE | 2022-06-16 | CRLHL7_ITS ---
For Patients: As a result of the Cures Act, medical imaging exams and procedure reports are released immediately into your electronic medical record. You may view this report before your referring provider. If you have questions, please contact your health care provider. DIGITAL DIAGNOSTIC BILATERAL MAMMOGRAM WITH TOMOSYNTHESIS AND COMPUTER-AIDED DETECTION RIGHT BREAST ULTRASOUND CLINICAL HISTORY: RIGHT breast lump. COMPARISON: 12/14/[address] abdomen and pelvis 01/24/2022. CT PET 04/04/2019. TECHNIQUE: Digital BILATERAL mammogram in four projections. Tomosynthesis and CAD utilized. Real-time ultrasound imaging of RIGHT breast with imaging documentation. BREAST COMPOSITION: The breasts are almost entirely fatty. FINDINGS: Postop changes noted in both breasts. The anterior chest wall tissue appears normal bilaterally with incidental benign calcifications. No suspicious masses. No axillary adenopathy. RIGHT Port-A-Cath. Targeted sonogram to the area of concern within the RIGHT chest demonstrates a densely calcified nodule at 8 o`clock 7 cm from the nipple measuring 8 x 8 x 6 millimeters compatible with benign fat necrosis. An additional smaller calcified focus is present at 7 o`clock 8 cm from the nipple measuring 3 millimeters. IMPRESSION: Benign fat necrosis RIGHT breast 8 o`clock 7 cm from the nipple corresponding to the area palpable concern. There is no evidence of malignancy. RECOMMENDATIONS: Clinical follow-up. BI-RADS Category 2: Benign Results and recommendations discussed with the patient. A lay language report of this examination will be provided to the patient. Dictated by: Dylan Haider MD @06/16/2022 11:26:15 AM jj/Dictated by: Dylan Haider MD @ 06/16/2022 11:26:00 AM (Electronically Signed)
== END 2022-06-16 09:38 | disposition home or self-care (01) ==
LOC: MAMMO 09:38
PROVIDERS: PCP Family Medicine; Visit Provider Nurse Practitioner Family
DX: N63.10 Unspecified lump in the right breast, unspecified quadrant (principal); D24.1 Benign neoplasm of right breast
CPT/HCPCS: 76642; 77066; G0279

== ENCOUNTER 2022-08-05 14:37 | Emergency (ER) | payer MEDICARE, SELFPAY ==
[2022-08-05 14:44] VITALS: BP 129/85; PULSE 90; RESP 16; TEMP 36.7; O2SAT 98; BMI 17.9
--- NOTE | 2022-08-05 15:16 | CRLHL7_ITS ---
For Patients: As a result of the Century Cures Act, medical imaging exams and procedure reports are released immediately into your electronic medical record. You may view this report before your referring provider. If you have questions, please contact your health care provider. INDICATION: Diffuse abdominal pain TECHNIQUE: Axial images were obtained from the diaphragm to the pubic symphysis. Reformats were obtained in the coronal and sagittal plane. IV Contrast: 50 cc Isovue 370 Oral Contrast: None COMPARISON: Abdomen and pelvis CT 01/24/2022 FINDINGS: Lower chest: Pleural thickening within the left hemithorax with loculated left pleural effusion and volume loss within the left hemithorax with consolidation at the left lung base. Catheter within the right atrium. Prior right breast surgery. Liver: Hypodensity within the left lobe of the liver appears similar. Gallbladder and bile ducts: Distended gallbladder with gallbladder wall thickening. Spleen: Multiple hypodensities within the spleen. Largest measures 10 millimeters and these are increased in size compared to the prior exam. Pancreas: Unremarkable. No mass or inflammation. Adrenal glands: Unremarkable. No nodules. Kidneys: Symmetric renal enhancement without hydronephrosis. Exophytic cyst anteriorly from the left kidney measures 6.7 centimeters. Vasculature: Unremarkable. GI tract: No evidence of obstruction. Limited evaluation of the bowel as multiple loops are clumped together as well as the adjacent carcinomatosis, see comments below. Peritoneum: There is a small amount of loculated ascites with prominent peritoneal thickening as well as marked nodularity and studding of the peritoneum. Numerous soft tissue clips are seen throughout the peritoneal cavity as well as marked soft tissue involvement of the omentum. Calcification redemonstrated in the left adnexal region. Bones: Degenerative disc disease lumbar spine. Sclerotic lesion left iliac wing, progressive. IMPRESSION: Metastatic disease. There is left pleural thickening with small left pleural effusion, small amount of ascites with extensive peritoneal carcinomatosis, numerous splenic lesions as well as a left iliac sclerotic lesion. The ascites, peritoneal carcinomatosis, splenic lesions and left iliac sclerotic lesion are all worsened compared to the prior examination consistent with significant progression of disease. Please note that all CT scans at this facility use dose modulation, iterative reconstruction, and/or weight-based dosing when appropriate to reduce radiation dose to as low as reasonably achievable. Dictated by Hay Chapin MD @ 08/05/2022 5:03:43 PM (Electronically Signed)
[2022-08-05 15:53] LABS: Basophils Absolute Auto 0.03 K/uL (0.00-0.30); Basophils Percent Auto 0.3 % (0.0-3.0); Eosinophils Absolute Auto 0.29 K/uL (0.00-0.50); Eosinophils Percent Auto 2.9 % (0.0-7.0); Hemoglobin* 12.4 gm/dL (12.0-16.0); Immature Granulocytes Abs Auto 0.02 K/uL (0.00-0.30); Immature Granulocytes Pct Auto 0.2 %; Lymphocytes Percent Auto 12.6 % (20-44); Mean Corpuscular HGB Conc 32 gm/dL (32-36); Mean Corpuscular Hemoglobin 28 pg (26-34); Mean Corpuscular Volume 89 fL (80-100); Monocytes Percent Auto 8.8 % (0.0-11.0); Neutrophils Percent Auto 75.2 % (42.0-72.0); Platelet Count* 316 K/uL (140-440); RDW Coefficient of Variation % 15.8 % (11.5-15.5); White Blood Count* 9.88 K/uL (4.50-11.00)
[2022-08-05 15:54] LABS: Lactate* 0.8 mmol/L (0.5-1.9)
[2022-08-05 15:57] LABS: Slide Review Reflex No
[2022-08-05 16:12] LABS: Albumin* 3.4 g/dL (3.3-5.0); Chloride* 100 mmol/L (96-114)
[2022-08-05 16:13] LABS: Sodium* 134 mmol/L (135-149)
[2022-08-05 16:15] LABS: Creatinine* 0.4 mg/dL (0.5-1.5); Est. Creatinine Clearance* 40.56; Estimated Glomerular Filt Rate 110 ml/min
[2022-08-05] MEDS: 0.9 % SODIUM CHLORIDE 500 ML 500 ML IV (16:15)
[2022-08-05 16:16] LABS: Alanine Aminotransferase* 25 U/L (4-35); Alkaline Phosphatase* 91 U/L (40-150); Aspartate Amino Transferase* 57 U/L (12-35); Bilirubin Direct* 0.2 mg/dL (0.0-0.5); Bilirubin Total* 0.5 mg/dL (0.1-1.5); Blood Urea Nitrogen* 12 mg/dL (7-30); Carbon Dioxide* 28 mmol/L (20-32); Glucose* 83 mg/dL (60-115); Lipase* 67 U/L (23-300); Total Protein* 6.5 g/dL (6.0-8.3)
[2022-08-05 16:19] LABS: C Reactive Protein* 2.5 mg/dL (0.5-1.0)
[2022-08-05 16:57] LABS: Appearance Urine Clear (Clear); Bilirubin Urine 1+ (Negative); Blood Urine Negative (Negative); Color Urine Yellow (Yellow); Glucose Urine Negative (Negative); Ketones Urine 3+ (Negative); Leukocyte Esterase Urine Negative (Negative); Nitrite Urine Negative (Negative); Protein Urine Negative (Negative); Specific Gravity Urine 1.015 (1.000-1.030); Urobilinogen Urine 0.2 (0.2-1.0); pH Urine 6.5 (5.0-8.5)
--- NOTE | 2022-08-05 17:00 | ED_ITS ---
HPI - General Adult General Chief complaint: Abdominal Pain Stated complaint: Bloated/Abdominal Pain Time Seen by Provider: 08/05/22 15:00 Source: patient Mode of arrival: ambulatory Limitations: no limitations History of Present Illness HPI narrative: 67-year-old female coming in today complaining of abdominal bloating and discomfort. She has been having some discomfort since July 22 when she started her new chemotherapy, however in the last several days it has gotten much worse. The pain is diffuse over the entire abdomen and the abdomen feels bloated and full. No changes in her bowel movements which are infrequent and small. She denies any urinary symptoms. No increase in nausea, no vomiting. No fevers or chills. Nothing seems to make her discomfort better or worse. Patient does have a history of breast cancer with metastasis to the lung and omentum. Appetite is decreased but that is not unusual for her. Related Data Home Medications Medication Instructions Recorded Confirmed carvedilol 12.5 mg tablet 12.5 mg PO BID 01/10/22 08/05/22 levothyroxine 75 mcg tablet 75 mcg PO DAILY 01/10/22 08/05/22 lisinopril 2.5 mg tablet 2.5 mg PO BID 01/10/22 08/05/22 loperamide 2 mg capsule 2 mg PO Q1H PRN 01/10/22 08/05/22 lorazepam 0.5 mg tablet 0.5 mg PO BID PRN 01/10/22 08/05/22 oxycodone 5 mg tablet 2.5 mg PO Q4H PRN 01/10/22 08/05/22 polyethylene glycol 3350 17 17 g PO DAILY 01/10/22 08/05/22 gram/dose oral powder Pediatric Multiple Vitamins 1 tab PO DAILY 02/10/22 08/05/22 acetaminophen 500 mg oral powder 500 mg PO Q6H PRN 03/11/22 08/05/22 packet (Tylenol Extra Strength) sennosides 8.6 mg tablet 8.6 mg PO QDAY PRN 03/31/22 08/05/22 cholecalciferol (vitamin D3) 50 1,000 unit PO DAILY 05/19/22 08/05/22 mcg (2,000 unit) capsule (D3-2000) calcium citrate 200 mg 1 tab PO BID 06/06/22 08/05/22 calcium-vitamin D3 6.25 mcg (250 unit) tablet apixaban 5 mg tablet (Eliquis) 5 mg PO Q12H 06/10/22 08/05/22 acetaminophen 650 mg 650 mg PO Q12H 06/30/22 08/05/22 tablet,extended release ondansetron 8 mg disintegrating 4 mg PO Q8H PRN nausea and vomiting 06/30/22 08/05/22 tablet bisacodyl 5 mg tablet,delayed 5 mg PO DAILY 08/05/22 08/05/22 release docusate sodium 100 mg capsule 100 mg PO DAILY 08/05/22 08/05/22 (Colace) Allergies Allergy/AdvReac Type Severity Reaction Status Date / Time amoxicillin Allergy Intermediate Diarrhea Verified 08/05/22 14:42 erythromycin base Allergy Intermediate Nausea Verified 08/05/22 14:42 adhesive Allergy Mild Verified 08/05/22 14:42 venlafaxine Allergy Unknown Verified 08/05/22 14:42 Review of Systems Status of ROS: Reports: 10 or more systems reviewed and unremarkable except as noted in History and below [facility] Medical History Basal cell carcinoma (BCC) Encounter for care related to Port-a-Cath Pulmonary emboli Surgical History S/P cataract surgery Social History Smoking Status: Never smoker Do you use any of these nicotine containing products: None Second hand tobacco smoke exposure: No How often do you have a drink containing alcohol: never AUDIT-C Alcohol total score: 0 Non-prescribed substance use: denies use service: No Exam Narrative: Exam Narrative: Thin, well-developed patient in no acute distress. Alert and oriented. Answers questions appropriately. Mood and affect are appropriate. Thoughts are goal oriented and rational. No tangential or magical thinking noted. Patient speaks in full sentences without needing to catch their breath. HEENT: Normocephalic atraumatic. Pupils are equally round reactive to light. Extraocular muscles are intact. Conjunctivae are moist without any icterus noted. Moist mucous membranes. Cardiovascular: Heart is regular rate and rhythm S1 and S2 are present without any murmurs. Lungs: Bilateral crackles, left greater than the right. Abdomen: Firm and distended. Diffuse mild tenderness throughout. She has palpable masses appreciated. Hypoactive bowel sounds. Extremities: Bilateral lower extremities are without edema. Skin: Well perfused without any obvious rashes. Const: Vital Signs, click to edit/add: Vital Signs - 24 hr 08/05/22 14:44 Temperature 98.0 F Pulse Rate [Pulse Oximeter] 90 Respiratory Rate 16 Blood Pressure [Ri ght Upper Arm] 129/85 Pulse Oximetry 98 Oxygen Delivery Me thod Room Air Course Course Hospital Course: Lab work was unremarkable. Abdominal CT scan showed worsening cancer and pockets of ascites. I did consult Dr. Arvizu who felt that doing a paracentesis would yield little results as far as relief from her discomfort. Vital Signs Vital signs: Initial Vital Signs Temperature 98.0 F 08/05/22 14:44 Temperature Source Temporal Artery Scan 08/05/22 14:44 Pulse Rate 90 08/05/22 14:44 Pulse Rhythm 08/05/22 14:44 Pulse Strength 3+ Normal 08/05/22 14:44 Respiratory Rate 16 08/05/22 14:44 Blood Pressure 129/85 08/05/22 14:44 Blood Pressure Mean 99 08/05/22 14:44 Blood Pressure Position Sitting 08/05/22 14:44 Pulse Oximetry 98 08/05/22 14:44 Oxygen Delivery Method 08/05/22 14:44 Vital Signs Temperature 98.0 F 08/05/22 14:44 Pulse Rate 90 08/05/22 14:44 Respiratory Rate 16 08/05/22 14:44 Blood Pressure 129/85 08/05/22 14:44 Pulse Oximetry 98 08/05/22 14:44 Oxygen Delivery Method 08/05/22 14:44 Temperature 98.0 F 08/05/22 14:44 Pulse Rate 90 08/05/22 14:44 Respiratory Rate 16 08/05/22 14:44 Blood Pressure 129/85 08/05/22 14:44 Pulse Oximetry 98 08/05/22 14:44 Oxygen Delivery Method 08/05/22 14:44 Medical Decision Making MDM Narrative Medical decision making narrative: 67-year-old female with breast cancer with metastasis to multiple areas, abdominal bloating and discomfort. Recommend that she check in with the cancer center on Monday. Dr. Hassan stated that they can contact her at that time if they feel that a paracentesis is warranted. Patient does have pain medication at home which she has not really been taking-she is encouraged to take it as needed. Lab Data Labs: Lab Results 08/05/22 08/05/22 08/05/22 Range/Units 15:45 15:45 15:45 WBC 9.88 (4.50-11.00) K/uL RBC 4.40 (4.00-5.20) m/uL Hgb 12.4 (12.0-16.0) gm/dL Hct 39.0 (33.0-51.0) % MCV 89 (80-100) fL MCH 28 (26-34) pg MCHC 32 (32-36) gm/dL RDW Coeff of Mireya 15.8 H (11.5-15.5) % Plt Count 316 (140-440) K/uL Neut % (Auto) 75.2 H (42.0-72.0) % Lymph % (Auto) 12.6 L (20-44) % [place] % (Auto) 8.8 (0.0-11.0) % Eos % (Auto) 2.9 (0.0-7.0) % Baso % (Auto) 0.3 (0.0-3.0) % Neut # (Auto) 7.40 H (1.7-7.0) K/uL Lymph # (Auto) 1.20 (0.90-2.90) K/uL [place] # (Auto) 0.90 (0.00-0.90) K/UL Eos # (Auto) 0.29 (0.00-0.50) K/uL Baso # (Auto) 0.03 (0.00-0.30) K/uL Sodium 134 L (135-149) mmol/L Potassium 4.0 (3.6-5.1) mmol/L Chloride 100 (96-114) mmol/L Carbon Dioxide 28 (20-32) mmol/L BUN 12 (7-30) mg/dL Creatinine 0.4 L (0.5-1.5) mg/dL Estimated Creat Clear 40.56 Estimated GFR 110 ml/min Glucose 83 (60-115) mg/dL Lactate 0.8 (0.5-1.9) mmol/L Calcium 9.0 (8.4-10.6) mg/dL Total Bilirubin 0.5 (0.1-1.5) mg/dL Direct Bilirubin 0.2 (0.0-0.5) mg/dL AST 57 H (12-35) U/L ALT 25 (4-35) U/L Alkaline Phosphatase 91 (40-150) U/L C-Reactive Protein 2.5 H (0.5-1.0) mg/dL Total Protein 6.5 (6.0-8.3) g/dL Albumin 3.4 (3.3-5.0) g/dL Lipase 67 (23-300) U/L Urine Color (Yellow) Urine Appearance (Clear) Urine pH (5.0-8.5) Ur Specific [place] (1.000-1.030) Urine Protein (Negative) Urine Glucose (UA) (Negative) Urine Ketones (Negative) Urine Blood (Negative) Urine Nitrite (Negative) Urine Bilirubin (Negative) Urine Urobilinogen (0.2-1.0) Ur Leukocyte Esterase (Negative) Urine RBC (0-2) Urine WBC (0-5) Ur Squamous Epith Cells (None-Few) Urine Bacteria (None) 08/05/22 Range/Units 16:36 WBC (4.50-11.00) K/uL RBC (4.00-5.20) m/uL Hgb (12.0-16.0) gm/dL Hct (33.0-51.0) % MCV (80-100) fL MCH (26-34) pg MCHC (32-36) gm/dL RDW Coeff of Mireya (11.5-15.5) % Plt Count (140-440) K/uL Neut % (Auto) (42.0-72.0) % Lymph % (Auto) (20-44) % [place] % (Auto) (0.0-11.0) % Eos % (Auto) (0.0-7.0) % Baso % (Auto) (0.0-3.0) % Neut # (Auto) (1.7-7.0) K/uL Lymph # (Auto) (0.90-2.90) K/uL [place] # (Auto) (0.00-0.90) K/UL Eos # (Auto) (0.00-0.50) K/uL Baso # (Auto) (0.00-0.30) K/uL Sodium (135-149) mmol/L Potassium (3.6-5.1) mmol/L Chloride (96-114) mmol/L Carbon Dioxide (20-32) mmol/L BUN (7-30) mg/dL Creatinine (0.5-1.5) mg/dL Estimated Creat Clear Estimated GFR ml/min Glucose (60-115) mg/dL Lactate (0.5-1.9) mmol/L Calcium (8.4-10.6) mg/dL Total Bilirubin (0.1-1.5) mg/dL Direct Bilirubin (0.0-0.5) mg/dL AST (12-35) U/L ALT (4-35) U/L Alkaline Phosphatase (40-150) U/L C-Reactive Protein (0.5-1.0) mg/dL Total Protein (6.0-8.3) g/dL Albumin (3.3-5.0) g/dL Lipase (23-300) U/L Urine Color Yellow (Yellow) Urine Appearance Clear (Clear) Urine pH 6.5 (5.0-8.5) Ur Specific [place] 1.015 (1.000-1.030) Urine Protein Negative (Negative) Urine Glucose (UA) Negative (Negative) Urine Ketones 3+ A (Negative) Urine Blood Negative (Negative) Urine Nitrite Negative (Negative) Urine Bilirubin 1+ A (Negative) Urine Urobilinogen 0.2 (0.2-1.0) Ur Leukocyte Esterase Negative (Negative) Urine RBC 0-2 (0-2) Urine WBC 0-2 (0-5) Ur Squamous Epith Cells None (None-Few) Urine Bacteria None (None) Imaging Data CT scan - abdomen: Attestation: I have reviewed the pertinent imaging results. Radiologist's impression: TECHNIQUE: Axial images were obtained from the diaphragm to the pubic symphysis. Reformats were obtained in the coronal and sagittal plane. IV Contrast: 50 cc Isovue 370 Oral Contrast: None COMPARISON: Abdomen and pelvis CT 01/24/2022 FINDINGS: Lower chest: Pleural thickening within the left hemithorax with loculated left pleural effusion and volume loss within the left hemithorax with consolidation at the left lung base. Catheter within the right atrium. Prior right breast surgery. Liver: Hypodensity within the left lobe of the liver appears similar. Gallbladder and bile ducts: Distended gallbladder with gallbladder wall thickening. Spleen: Multiple hypodensities within the spleen. Largest measures 10 millimeters and these are increased in size compared to the prior exam. Pancreas: Unremarkable. No mass or inflammation. Adrenal glands: Unremarkable. No nodules. Kidneys: Symmetric renal enhancement without hydronephrosis. Exophytic cyst anteriorly from the left kidney measures 6.7 centimeters. Vasculature: Unremarkable. GI tract: No evidence of obstruction. Limited evaluation of the bowel as multiple loops are clumped together as well as the adjacent carcinomatosis, see comments below. Peritoneum: There is a small amount of loculated ascites with prominent peritoneal thickening as well as marked nodularity and studding of the peritoneum. Numerous soft tissue clips are seen throughout the peritoneal cavity as well as marked soft tissue involvement of the omentum. Calcification redemonstrated in the left adnexal region. Bones: Degenerative disc disease lumbar spine. Sclerotic lesion left iliac wing, progressive. IMPRESSION: Metastatic disease. There is left pleural thickening with small left pleural effusion, small amount of ascites with extensive peritoneal carcinomatosis, numerous splenic lesions as well as a left iliac sclerotic lesion. The ascites, peritoneal carcinomatosis, splenic lesions and left iliac sclerotic lesion are all worsened compared to the prior examination consistent with significant p rogression of disease. Discharge Plan Discharge Clinical Impression: Cancer associated pain Patient Disposition: Home, Self-Care Condition: Stable Additional Instructions: Recommended that you follow-up with the Cancer Center on Monday to discuss further management of abdominal discomfort. Prescriptions: No Action Tylenol Extra Strength 500 mg powder in packet 500 mg PO Q6H PRN sennosides 8.6 mg tablet 8.6 mg PO QDAY PRN Hold Instructions: avoiding senna, doesn't agree with me calcium citrate-vitamin D3 200 mg-6.25 mcg (250 unit) tablet 1 tab PO BID ondansetron 8 mg tablet,disintegrating 4 mg PO Q8H PRN (Reason: nausea and vomiting) acetaminophen 650 mg tablet extended release 650 mg PO Q12H carvedilol 12.5 mg tablet 12.5 mg PO BID levothyroxine 75 mcg tablet 75 mcg PO DAILY lisinopril 2.5 mg tablet 2.5 mg PO BID lorazepam 0.5 mg tablet 0.5 mg PO BID PRN Hold Instructions: don't use Label Comments: 0.5 MG PO BID PRN insomnia due to dexamethasone or nausea, not controlled with ondansetron or prochlorperazine. Do not take at the same time as opioids. Can be sedating. oxycodone 5 mg tablet 2.5 mg PO Q4H PRN Hold Instructions: Order Change polyethylene glycol 3350 17 gram/dose powder 17 g PO DAILY Label Comments: TAKE 17 GRAMS BY MOUTH DAILY. MAY INCREASE TO TWICE DAILY NEEDED FOR CONSTIPATION. DISSOLVE IN 240 MLS OF BEVERAGE loperamide 2 mg capsule 2 mg PO Q1H PRN Hold Instructions: hasn't taken since chemo Rx Instructions: administer after each loose stool until symptoms controlled; do not exceed 8 mg per 24 hrs cholecalciferol (vitamin D3) [D3-2000] 50 mcg (2,000 unit) capsule 1,000 unit PO DAILY Pediatric Multiple Vitamins 1 tab PO DAILY Rx Instructions: orally daily PRN; Flinstones Plus Iron Multivit Eliquis 5 mg tablet 5 mg PO Q12H docusate sodium [Colace] 100 mg capsule 100 mg PO DAILY bisacodyl 5 mg tablet,delayed release (DR/EC) 5 mg PO DAILY Follow Up/Referrals: Gretel Garcia DO [Primary Care Provider] - Stand Alone Forms: [facility] Info Instructions
[2022-08-05 17:18] LABS: RBC Urine 0-2 (0-2); WBC Urine 0-2 (0-5)
[2022-08-05] MEDS: HEPARIN 500 UNIT/5 ML SYRINGE IVF (17:55)
[2022-08-05 18:02] VITALS: BP 125/77
== END 2022-08-05 18:05 | disposition home or self-care (01) ==
PROVIDERS: Emergency Provider Family Medicine; PCP Family Medicine
DX: G89.3 Neoplasm related pain (acute) (chronic) (principal)
CPT/HCPCS: 36415; 74177; 80048; 80076; 81001; 83605; 83690; 85025; 86140; 87086; 99284; J1642; J7120; Q9967

== ENCOUNTER 2022-08-15 14:01 | Outpatient (RCR) | payer MEDICARE, BC, SELFPAY ==
[2022-02-17 08:44] VITALS: BP 105/70; PULSE 96; RESP 16; TEMP 36.4; O2SAT 96
[2022-02-17 09:01] LABS: Basophils Percent Auto 0.7 % (0.0-3.0); Eosinophils Percent Auto 1.4 % (0.0-7.0); Hematocrit 37.4 % (33.0-51.0); Hemoglobin* 11.8 gm/dL (12.0-16.0); Immature Granulocytes Abs Auto 0.02 K/uL (0.00-0.30); Lymphocytes Percent Auto 26.3 % (20-44); Mean Corpuscular HGB Conc 32 gm/dL (32-36); Mean Corpuscular Hemoglobin 26 pg (26-34); Mean Corpuscular Volume 82 fL (80-100); Monocytes Percent Auto 12.7 % (0.0-11.0); Neutrophils Percent Auto 58.4 % (42.0-72.0); Platelet Count* 250 K/uL (140-440); RDW Coefficient of Variation % 18.5 % (11.5-15.5); Red Blood Count 4.56 m/uL (4.00-5.20); White Blood Count* 4.18 K/uL (4.50-11.00)
[2022-02-17 09:27] LABS: Slide Review Reflex No
[2022-02-17 09:35] LABS: Albumin* 3.5 g/dL (3.3-5.0); Chloride* 102 mmol/L (96-114); Potassium* 3.8 mmol/L (3.6-5.1); Sodium* 136 mmol/L (135-149)
[2022-02-17 09:37] LABS: Bilirubin Total* 0.3 mg/dL (0.1-1.5); Carbon Dioxide* 29 mmol/L (20-32); Creatinine* 0.5 mg/dL (0.5-1.5); Estimated Glomerular Filt Rate 105 ml/min
[2022-02-17 09:38] LABS: Alanine Aminotransferase* 11 U/L (4-35); Alkaline Phosphatase* 63 U/L (40-150); Aspartate Amino Transferase* 22 U/L (12-35); Blood Urea Nitrogen* 10 mg/dL (7-30); Calcium* 9.1 mg/dL (8.4-10.6); Glucose* 87 mg/dL (60-115); Total Protein* 6.2 g/dL (6.0-8.3)
[2022-02-17] MEDS: ACETAMINOPHEN 325 MG TABLET 650 MG PO (10:26)
[2022-02-17] MEDS: PALONOSETRON 0.25 MG/5 ML inj IV (10:31)
[2022-02-17] MEDS: dexAMETHasone 20 MG in 0.9 % SODIUM CHLORIDE 100 ml 100 ML 408 MG IVPB (10:31)
[2022-02-17] MEDS: SODIUM CHLORIDE 0.9 % (FLUSH) 10 ML SYRINGE IVF (12:10)
[2022-02-17] MEDS: HEPARIN 500 UNIT/5 ML SYRINGE IVF (12:10)
--- NOTE | 2022-02-17 13:49 | URNOTE ---
Request received for prior authorization of Pegfilgrastim [id number]. Patient carries Medicare as primary insurance. Per [facility].gov LCD W59925 no prior authorization is required for Pegfilgrastim. Services are based on medical necessity and follows Medicare guidelines.
--- NOTE | 2022-02-17 14:27 | ONC.NURNOTE ---
Pt here for cycle 2 Enhertu, cycle 2 was delayed by one week due to low ANC on 02/10/22. ANC today 2.4. Zigzag Tunnel Elastic Operator and Clara Steinberg APRN discussed pt's treatment with Dr. Ware and decision made to add neulasta on day 2. Pt verbalized understanding and will return on 02/18/22 for Neulasta.
[2022-02-18 13:06] VITALS: BP 130/78; PULSE 88; RESP 16; TEMP 36.9; O2SAT 94
[2022-02-18] MEDS: PEGFILGRASTIM 6 MG/0.6 ML SYRINGE SUBCUT (13:22)
[2022-03-11 09:10] LABS: Basophils Absolute Auto 0.05 K/uL (0.00-0.30); Basophils Percent Auto 0.6 % (0.0-3.0); Eosinophils Absolute Auto 0.08 K/uL (0.00-0.50); Eosinophils Percent Auto 0.9 % (0.0-7.0); Hematocrit 36.9 % (33.0-51.0); Hemoglobin* 11.6 gm/dL (12.0-16.0); Immature Granulocytes Abs Auto 0.02 K/uL (0.00-0.30); Lymphocytes Percent Auto 15.4 % (20-44); Mean Corpuscular HGB Conc 31 gm/dL (32-36); Mean Corpuscular Hemoglobin 26 pg (26-34); Mean Corpuscular Volume 84 fL (80-100); Monocytes Percent Auto 6.8 % (0.0-11.0); Neutrophils Percent Auto 76.1 % (42.0-72.0); Platelet Count* 306 K/uL (140-440); RDW Coefficient of Variation % 20.7 % (11.5-15.5); Red Blood Count 4.39 m/uL (4.00-5.20); White Blood Count* 8.55 K/uL (4.50-11.00)
[2022-03-11 09:24] LABS: Albumin* 3.4 g/dL (3.3-5.0); Chloride* 103 mmol/L (96-114); Potassium* 3.7 mmol/L (3.6-5.1); Sodium* 137 mmol/L (135-149)
[2022-03-11 09:26] LABS: Creatinine* 0.5 mg/dL (0.5-1.5); Estimated Glomerular Filt Rate 105 ml/min
[2022-03-11 09:27] LABS: Alanine Aminotransferase* 14 U/L (4-35); Alkaline Phosphatase* 77 U/L (40-150); Aspartate Amino Transferase* 20 U/L (12-35); Bilirubin Total* 0.3 mg/dL (0.1-1.5); Blood Urea Nitrogen* 9 mg/dL (7-30); Calcium* 9.3 mg/dL (8.4-10.6); Carbon Dioxide* 28 mmol/L (20-32); Glucose* 120 mg/dL (60-115)
[2022-03-11 09:35] LABS: Slide Review Reflex No
[2022-03-11] MEDS: ACETAMINOPHEN 325 MG TABLET 650 MG PO (10:23)
[2022-03-11] MEDS: dexAMETHasone 20 MG in 0.9 % SODIUM CHLORIDE 100 ml 100 ML 408 MG IVPB (10:56)
[2022-03-11] MEDS: PALONOSETRON 0.25 MG/5 ML inj IV (10:58)
[2022-03-11] MEDS: diphenhydrAMINE 12.5 MG in 0.9 % SODIUM CHLORIDE 100 ml 100 ML 401 MG IVPB (11:19)
[2022-03-11] MEDS: SODIUM CHLORIDE 0.9 % (FLUSH) 10 ML SYRINGE IVF (12:23)
[2022-03-11] MEDS: HEPARIN 500 UNIT/5 ML SYRINGE IVF (12:23)
[2022-03-11] MEDS: 5 % DEXTROSE 250 ML IV (15:36)
[2022-03-31 08:42] LABS: Basophils Absolute Auto 0.06 K/uL (0.00-0.30); Basophils Percent Auto 0.7 % (0.0-3.0); Eosinophils Absolute Auto 0.16 K/uL (0.00-0.50); Eosinophils Percent Auto 1.9 % (0.0-7.0); Hematocrit 35.9 % (33.0-51.0); Hemoglobin* 11.3 gm/dL (12.0-16.0); Immature Granulocytes Abs Auto 0.02 K/uL (0.00-0.30); Lymphocytes Percent Auto 15.8 % (20-44); Mean Corpuscular HGB Conc 32 gm/dL (32-36); Mean Corpuscular Hemoglobin 27 pg (26-34); Mean Corpuscular Volume 87 fL (80-100); Neutrophils Percent Auto 74.4 % (42.0-72.0); Platelet Count* 332 K/uL (140-440); RDW Coefficient of Variation % 21.7 % (11.5-15.5); Red Blood Count 4.13 m/uL (4.00-5.20); White Blood Count* 8.34 K/uL (4.50-11.00)
[2022-03-31 08:47] LABS: Slide Review Reflex No
[2022-03-31 09:00] LABS: Albumin* 3.5 g/dL (3.3-5.0); Chloride* 106 mmol/L (96-114); Sodium* 137 mmol/L (135-149)
[2022-03-31 09:01] LABS: Potassium* 3.9 mmol/L (3.6-5.1)
[2022-03-31 09:03] LABS: Alkaline Phosphatase* 89 U/L (40-150); Aspartate Amino Transferase* 18 U/L (12-35); Bilirubin Total* 0.4 mg/dL (0.1-1.5); Blood Urea Nitrogen* 9 mg/dL (7-30); Carbon Dioxide* 27 mmol/L (20-32); Creatinine* 0.5 mg/dL (0.5-1.5); Estimated Glomerular Filt Rate 105 ml/min; Total Protein* 5.9 g/dL (6.0-8.3)
[2022-03-31 09:04] LABS: Alanine Aminotransferase* 11 U/L (4-35); Calcium* 9.2 mg/dL (8.4-10.6); Glucose* 98 mg/dL (60-115)
[2022-03-31] MEDS: 5 % DEXTROSE 250 ML IV (10:05)
[2022-03-31] MEDS: SODIUM CHLORIDE 0.9 % (FLUSH) 10 ML SYRINGE IVF ×2 (10:05→11:52)
[2022-03-31] MEDS: ACETAMINOPHEN 325 MG TABLET 650 MG PO (10:05)
[2022-03-31] MEDS: dexAMETHasone 20 MG in 0.9 % SODIUM CHLORIDE 100 ml 100 ML 410 MG IVPB (10:12)
[2022-03-31] MEDS: diphenhydrAMINE 25 MG in 0.9 % SODIUM CHLORIDE 100 ml 100 ML 400 MG IVPB (10:36)
[2022-03-31] MEDS: [UNRECOGNIZED DRUG - MIXTURE] 75 MG IVPB (11:06)
[2022-03-31] MEDS: HEPARIN 500 UNIT/5 ML SYRINGE IVF (11:52)
[2022-04-01 13:00] VITALS: BP 121/75; PULSE 85; RESP 16; TEMP 36.8; O2SAT 94
[2022-04-01] MEDS: PEGFILGRASTIM 6 MG/0.6 ML SYRINGE SUBCUT (13:10)
--- NOTE | 2022-04-13 10:16 | ONC.NURNOTE ---
Patient called to let us know that she was seen in [place] this week and to continue same treatment. Note printed off and sent to be scanned. Patient wants to delay treatment one week due to family activity on 04/23, appointment for next chemotherapy moved to 04/28/2022.
[2022-04-28 08:30] VITALS: BP 104/68; PULSE 86; RESP 16; TEMP 36.7; O2SAT 96
[2022-04-28 08:39] VITALS: BP 104/68; PULSE 86; RESP 16; TEMP 36.7; O2SAT 96
[2022-04-28 09:06] LABS: Basophils Absolute Auto 0.05 K/uL (0.00-0.30); Basophils Percent Auto 0.6 % (0.0-3.0); Eosinophils Absolute Auto 0.17 K/uL (0.00-0.50); Eosinophils Percent Auto 2.1 % (0.0-7.0); Hematocrit 35.9 % (33.0-51.0); Hemoglobin* 11.4 gm/dL (12.0-16.0); Immature Granulocytes Abs Auto 0.01 K/uL (0.00-0.30); Lymphocytes Percent Auto 15.9 % (20-44); Mean Corpuscular HGB Conc 32 gm/dL (32-36); Mean Corpuscular Hemoglobin 29 pg (26-34); Mean Corpuscular Volume 91 fL (80-100); Monocytes Percent Auto 7.2 % (0.0-11.0); Neutrophils Percent Auto 74.1 % (42.0-72.0); Platelet Count* 318 K/uL (140-440); RDW Coefficient of Variation % 20.4 % (11.5-15.5); Red Blood Count 3.94 m/uL (4.00-5.20); White Blood Count* 8.04 K/uL (4.50-11.00)
[2022-04-28 09:14] LABS: Slide Review Reflex No
[2022-04-28 09:27] LABS: Albumin* 3.5 g/dL (3.3-5.0); Chloride* 103 mmol/L (96-114); Sodium* 137 mmol/L (135-149)
[2022-04-28 09:29] LABS: Bilirubin Total* 0.4 mg/dL (0.1-1.5); Carbon Dioxide* 29 mmol/L (20-32); Creatinine* 0.5 mg/dL (0.5-1.5); Estimated Glomerular Filt Rate 105 ml/min
[2022-04-28 09:30] LABS: Alanine Aminotransferase* 13 U/L (4-35); Alkaline Phosphatase* 70 U/L (40-150); Aspartate Amino Transferase* 20 U/L (12-35); Blood Urea Nitrogen* 11 mg/dL (7-30); Calcium* 9.3 mg/dL (8.4-10.6); Glucose* 104 mg/dL (60-115); Total Protein* 5.9 g/dL (6.0-8.3)
[2022-04-28] MEDS: ACETAMINOPHEN 325 MG TABLET 650 MG PO (10:02)
[2022-04-28] MEDS: SODIUM CHLORIDE 0.9 % (FLUSH) 10 ML SYRINGE IVF ×2 (10:17→11:53)
[2022-04-28] MEDS: HEPARIN 500 UNIT/5 ML SYRINGE IVF ×2 (10:17→11:53)
[2022-04-28] MEDS: dexAMETHasone 20 MG in 0.9 % SODIUM CHLORIDE 100 ml 100 ML 408 MG IVPB (10:17)
[2022-04-28] MEDS: diphenhydrAMINE 25 MG in 0.9 % SODIUM CHLORIDE 100 ml 100 ML 402 MG IVPB (10:43)
[2022-04-28] MEDS: [UNRECOGNIZED DRUG - MIXTURE] 75 MG IVPB (11:15)
[2022-04-28] MEDS: 5 % DEXTROSE 250 ML IV (13:39)
[2022-04-29 13:13] VITALS: BP 138/82; PULSE 86; RESP 16; TEMP 36.7; O2SAT 100
[2022-04-29] MEDS: PEGFILGRASTIM 6 MG/0.6 ML SYRINGE SUBCUT (13:14)
[2022-05-19 08:23] LABS: Basophils Absolute Auto 0.03 K/uL (0.00-0.30); Basophils Percent Auto 0.4 % (0.0-3.0); Eosinophils Absolute Auto 0.14 K/uL (0.00-0.50); Eosinophils Percent Auto 1.9 % (0.0-7.0); Hematocrit 37.6 % (33.0-51.0); Hemoglobin* 11.8 gm/dL (12.0-16.0); Lymphocytes Percent Auto 15.2 % (20-44); Mean Corpuscular HGB Conc 31 gm/dL (32-36); Mean Corpuscular Hemoglobin 29 pg (26-34); Mean Corpuscular Volume 93 fL (80-100); Monocytes Percent Auto 7.1 % (0.0-11.0); Neutrophils Percent Auto 75.3 % (42.0-72.0); Platelet Count* 313 K/uL (140-440); RDW Coefficient of Variation % 18.1 % (11.5-15.5); Red Blood Count 4.04 m/uL (4.00-5.20); White Blood Count* 7.31 K/uL (4.50-11.00)
[2022-05-19 08:25] LABS: Slide Review Reflex No
[2022-05-19 08:43] LABS: Albumin* 3.7 g/dL (3.3-5.0); Chloride* 103 mmol/L (96-114)
[2022-05-19 08:44] LABS: Potassium* 4.1 mmol/L (3.6-5.1); Sodium* 137 mmol/L (135-149)
[2022-05-19 08:46] LABS: Aspartate Amino Transferase* 23 U/L (12-35); Bilirubin Total* 0.5 mg/dL (0.1-1.5); Carbon Dioxide* 30 mmol/L (20-32); Creatinine* 0.5 mg/dL (0.5-1.5); Estimated Glomerular Filt Rate 105 ml/min; Total Protein* 6.1 g/dL (6.0-8.3)
[2022-05-19 08:47] LABS: Alanine Aminotransferase* 14 U/L (4-35); Alkaline Phosphatase* 84 U/L (40-150); Blood Urea Nitrogen* 10 mg/dL (7-30); Glucose* 92 mg/dL (60-115)
[2022-05-19] MEDS: dexAMETHasone 20 MG in 0.9 % SODIUM CHLORIDE 100 ml 100 ML 408 MG IVPB (09:36)
[2022-05-19] MEDS: SODIUM CHLORIDE 0.9 % (FLUSH) 10 ML SYRINGE IVF (09:36)
[2022-05-19] MEDS: ACETAMINOPHEN 325 MG TABLET 650 MG PO (09:37)
[2022-05-19] MEDS: diphenhydrAMINE 25 MG in 0.9 % SODIUM CHLORIDE 100 ml 100 ML 402 MG IVPB (10:07)
[2022-05-19] MEDS: [UNRECOGNIZED DRUG - MIXTURE] 210 MG IVPB (10:35)
[2022-05-20 13:00] VITALS: BP 149/79; PULSE 90; RESP 14; TEMP 37.3; O2SAT 98
[2022-05-20] MEDS: PEGFILGRASTIM 6 MG/0.6 ML SYRINGE SUBCUT (13:33)
[2022-06-10 09:24] LABS: Basophils Absolute Auto 0.03 K/uL (0.00-0.30); Basophils Percent Auto 0.3 % (0.0-3.0); Eosinophils Absolute Auto 0.14 K/uL (0.00-0.50); Eosinophils Percent Auto 1.4 % (0.0-7.0); Hematocrit 38.3 % (33.0-51.0); Immature Granulocytes Abs Auto 0.02 K/uL (0.00-0.30); Immature Granulocytes Pct Auto 0.2 %; Lymphocytes Percent Auto 10.3 % (20-44); Mean Corpuscular HGB Conc 31 gm/dL (32-36); Mean Corpuscular Hemoglobin 29 pg (26-34); Mean Corpuscular Volume 94 fL (80-100); Monocytes Percent Auto 5.6 % (0.0-11.0); Neutrophils Percent Auto 82.2 % (42.0-72.0); Platelet Count* 330 K/uL (140-440); RDW Coefficient of Variation % 16.4 % (11.5-15.5); Red Blood Count 4.09 m/uL (4.00-5.20); White Blood Count* 9.77 K/uL (4.50-11.00)
[2022-06-10 09:30] VITALS: BP 96/58; PULSE 82; RESP 16; TEMP 36.8; O2SAT 96
[2022-06-10 09:32] LABS: Slide Review Reflex No
[2022-06-10 09:45] LABS: Albumin* 3.6 g/dL (3.3-5.0); Chloride* 105 mmol/L (96-114); Sodium* 139 mmol/L (135-149)
[2022-06-10 09:48] LABS: Alanine Aminotransferase* 14 U/L (4-35); Alkaline Phosphatase* 84 U/L (40-150); Aspartate Amino Transferase* 21 U/L (12-35); Bilirubin Total* 0.4 mg/dL (0.1-1.5); Blood Urea Nitrogen* 7 mg/dL (7-30); Carbon Dioxide* 30 mmol/L (20-32); Creatinine* 0.5 mg/dL (0.5-1.5); Est. Creatinine Clearance* 42.49; Estimated Glomerular Filt Rate 105 ml/min; Glucose* 110 mg/dL (60-115); Total Protein* 6.1 g/dL (6.0-8.3)
[2022-06-10 09:49] LABS: Calcium* 9.1 mg/dL (8.4-10.6)
[2022-06-10] MEDS: ACETAMINOPHEN 325 MG TABLET 650 MG PO (10:29)
[2022-06-10] MEDS: dexAMETHasone 10 MG in 0.9 % SODIUM CHLORIDE 100 ml 100 ML 420 MG IVPB (10:30)
[2022-06-10] MEDS: 5 % DEXTROSE 250 ML IV (10:30)
[2022-06-10] MEDS: diphenhydrAMINE 25 MG in 0.9 % SODIUM CHLORIDE 100 ml 100 ML 402 MG IVPB (10:51)
[2022-06-10] MEDS: [UNRECOGNIZED DRUG - MIXTURE] 225 MG IVPB (11:09)
[2022-06-10] MEDS: SODIUM CHLORIDE 0.9 % (FLUSH) 10 ML SYRINGE IVF (11:52)
[2022-06-10] MEDS: HEPARIN 500 UNIT/5 ML SYRINGE IVF (11:52)
--- NOTE | 2022-06-13 08:22 | ONC.NURNOTE ---
Addendum entered by Parul Pardo RN 06/13/22 09:04: Pt arrived with neulasta onpro, upon inspection, onpro is empty and pt states she did not feel any leaking. Pt states the beeping started at 1520 and onpro was due to deliver around 1450. Pt scheduled for repeat CBC in one week. Original Note: Pt called this am with concerns of the neulasta onpro failing on Monday. Pt states the device beeped and turned red. Pt called the ED and was instructed to remove onpro and call [facility] on Monday morning. Pt wondering if she could have received part of her dose. Pt also expressed concern of finding a lump in her right breast yesterday. Salesperson Books discussed with Yolanda Diamond CNP and order received for pt to have a diagnostic mammogram done and pt instructed to bring neulasta onpro into [facility] to be evaluated. If it appears pt could have received a partial dose, plan per Yolanda Diamond is for pt to return in 7 days for CBC recheck with possible administration of Neupogen. Natalie RAMIREZ, breast navigator updated. Pt verbalized understanding of plan of care.
[2022-06-20 11:22] LABS: Basophils Percent Auto 0.3 % (0.0-3.0); Eosinophils Percent Auto 0.9 % (0.0-7.0); Hematocrit 38.2 % (33.0-51.0); Hemoglobin* 12.2 gm/dL (12.0-16.0); Immature Granulocytes Pct Auto 0.8 %; Mean Corpuscular HGB Conc 32 gm/dL (32-36); Mean Corpuscular Hemoglobin 30 pg (26-34); Mean Corpuscular Volume 93 fL (80-100); Monocytes Percent Auto 5.8 % (0.0-11.0); Neutrophils Percent Auto 85.2 % (42.0-72.0); Platelet Count* 292 K/uL (140-440); RDW Coefficient of Variation % 16.3 % (11.5-15.5); Red Blood Count 4.12 m/uL (4.00-5.20); White Blood Count* 13.25 K/uL (4.50-11.00)
[2022-06-20 11:26] LABS: Slide Review Reflex No
[2022-06-30 08:30] LABS: Basophils Absolute Auto 0.04 K/uL (0.00-0.30); Basophils Percent Auto 0.4 % (0.0-3.0); Eosinophils Absolute Auto 0.17 K/uL (0.00-0.50); Eosinophils Percent Auto 1.9 % (0.0-7.0); Hematocrit 35.7 % (33.0-51.0); Hemoglobin* 11.4 gm/dL (12.0-16.0); Immature Granulocytes Abs Auto 0.02 K/uL (0.00-0.30); Immature Granulocytes Pct Auto 0.2 %; Lymphocytes Percent Auto 11.3 % (20-44); Mean Corpuscular HGB Conc 32 gm/dL (32-36); Mean Corpuscular Hemoglobin 29 pg (26-34); Mean Corpuscular Volume 92 fL (80-100); Monocytes Percent Auto 6.3 % (0.0-11.0); Neutrophils Percent Auto 79.9 % (42.0-72.0); Platelet Count* 332 K/uL (140-440); RDW Coefficient of Variation % 15.7 % (11.5-15.5); Red Blood Count 3.89 m/uL (4.00-5.20); White Blood Count* 9.02 K/uL (4.50-11.00)
[2022-06-30 08:31] LABS: Slide Review Reflex No
[2022-06-30 08:46] LABS: Albumin* 3.7 g/dL (3.3-5.0); Chloride* 105 mmol/L (96-114)
[2022-06-30 08:47] LABS: Potassium* 3.7 mmol/L (3.6-5.1); Sodium* 139 mmol/L (135-149)
[2022-06-30 08:49] LABS: Alkaline Phosphatase* 101 U/L (40-150); Aspartate Amino Transferase* 22 U/L (12-35); Bilirubin Total* 0.4 mg/dL (0.1-1.5); Blood Urea Nitrogen* 10 mg/dL (7-30); Carbon Dioxide* 29 mmol/L (20-32); Creatinine* 0.5 mg/dL (0.5-1.5); Est. Creatinine Clearance* 41.93; Estimated Glomerular Filt Rate 104 ml/min; Glucose* 121 mg/dL (60-115); Total Protein* 6.4 g/dL (6.0-8.3)
[2022-06-30 08:50] LABS: Alanine Aminotransferase* 15 U/L (4-35); Calcium* 9.3 mg/dL (8.4-10.6)
[2022-06-30] MEDS: ACETAMINOPHEN 325 MG TABLET 650 MG PO (09:46)
[2022-06-30] MEDS: diphenhydrAMINE 12.5 MG in 0.9 % SODIUM CHLORIDE 100 ml 100 ML 401 MG IVPB (09:46)
[2022-06-30] MEDS: 5 % DEXTROSE 250 ML IV (09:46)
[2022-06-30] MEDS: SODIUM CHLORIDE 0.9 % (FLUSH) 10 ML SYRINGE IVF ×2 (09:46→11:17)
[2022-06-30] MEDS: dexAMETHasone 10 MG in 0.9 % SODIUM CHLORIDE 100 ml 100 ML 404 MG IVPB (10:09)
[2022-06-30] MEDS: [UNRECOGNIZED DRUG - MIXTURE] 225 MG IVPB (10:34)
[2022-06-30] MEDS: HEPARIN 500 UNIT/5 ML SYRINGE IVF (11:17)
[2022-07-01 13:22] VITALS: BP 132/83; PULSE 82; RESP 16; TEMP 36.1; O2SAT 99
[2022-07-01] MEDS: PEGFILGRASTIM 6 MG/0.6 ML SYRINGE SUBCUT (13:22)
[2022-07-12] MEDS: SODIUM CHLORIDE 0.9 % (FLUSH) 10 ML SYRINGE IVF (10:00)
[2022-07-12] MEDS: HEPARIN 500 UNIT/5 ML SYRINGE IVF (10:00)
--- NOTE | 2022-07-15 14:46 | PC.NURSE ---
Pt called today after her visit at [facility] in [place] with Dr. Benson to share that her recent scans show disease progression. She will be switching from ENHERTU to Kadcyla. Pt is scheduled to see Yolanda Diamond NP and have treatment on , 07/21/2022. Per pt, Dr. Benson sent an e-mail to Dr. Serna and LOIVERIO Guerrero with this update. Will discuss with MD team to get dose so we can get prior authorization done kendrick. Of note, pt has new insurance as of 07/17/2022. Becky Connelly RN
--- NOTE | 2022-07-20 09:28 | URNOTE ---
Request received for Ado-Trastuzumab Emt (Kadcyla) ([id number]). Prior authorization is not required [facility][id number], called PAL MORAN (RepDomonique Mraie Ref# call- [id number] and confirmed prior authorization is determined through [employer].
[2022-07-22 11:01] VITALS: BP 85/57; PULSE 85; RESP 16; TEMP 36.5; O2SAT 97
[2022-07-22 11:28] LABS: Basophils Percent Auto 0.5 % (0.0-3.0); Eosinophils Percent Auto 3.6 % (0.0-7.0); Hematocrit 37.4 % (33.0-51.0); Immature Granulocytes Pct Auto 0.3 %; Lymphocytes Percent Auto 9.1 % (20-44); Mean Corpuscular HGB Conc 32 gm/dL (32-36); Mean Corpuscular Hemoglobin 29 pg (26-34); Mean Corpuscular Volume 91 fL (80-100); Monocytes Percent Auto 7.7 % (0.0-11.0); Neutrophils Percent Auto 78.8 % (42.0-72.0); Platelet Count* 329 K/uL (140-440); RDW Coefficient of Variation % 16.3 % (11.5-15.5); Red Blood Count 4.12 m/uL (4.00-5.20); White Blood Count* 11.65 K/uL (4.50-11.00)
[2022-07-22 11:32] LABS: Slide Review Reflex No
[2022-07-22 11:55] LABS: Chloride* 104 mmol/L (96-114)
[2022-07-22 11:56] LABS: Albumin* 3.6 g/dL (3.3-5.0); Potassium* 4.2 mmol/L (3.6-5.1); Sodium* 137 mmol/L (135-149)
[2022-07-22 11:58] LABS: Bilirubin Total* 0.4 mg/dL (0.1-1.5); Carbon Dioxide* 30 mmol/L (20-32); Creatinine* 0.5 mg/dL (0.5-1.5); Est. Creatinine Clearance* 40.24; Estimated Glomerular Filt Rate 104 ml/min
[2022-07-22 11:59] LABS: Alanine Aminotransferase* 13 U/L (4-35); Alkaline Phosphatase* 89 U/L (40-150); Aspartate Amino Transferase* 22 U/L (12-35); Blood Urea Nitrogen* 11 mg/dL (7-30); Glucose* 96 mg/dL (60-115); Total Protein* 6.4 g/dL (6.0-8.3)
[2022-07-22 12:00] LABS: Calcium* 9.2 mg/dL (8.4-10.6)
[2022-07-22] MEDS: ONDANSETRON 2 MG/ML inj 8 MG IVP (12:16)
--- NOTE | 2022-07-22 16:42 | ONC.NURNOTE ---
Reviewed handout on Kadcyla with pt; verbalized understanding. Pt to call if any issues; tolerated infusion well.
--- NOTE | 2022-08-03 10:00 | ONC.NURNOTE ---
Patient called wondering a few things that she is experiencing since Kadcyla was given: 1. Abdomen seems very distended and taught--she has been having normal BM'S. Did take a Dulcolax tablet Monday followed by a few episodes of diarrhea but does feel like she is not obstructed and is very on top of bowels due to history of obstruction. She will take some Miralax and maybe a Colace because she did feel some relief after her Ducolax tablet. Did discuss potential for ascites and relief is usually draining but best if it can wait. Patient prefers to wait 2. Also is having that pain on right side-she can feel the rocksunder her skin and its hard to sleep since she prefers her right side. Does have Oxycodone but is reluctant to use it due to issues with bowels and has been taking 1/4 of a 650mg tylenol at bedtime. Encourage her to use Oxycodone if needed and then take her Ducolax with Colace or increase her Miralax. Is worried about her liver enzymes and did let know they will be checked prior to kadcycla as well. 3. Asking about echo-wondering when that will be repeated-last done 06/13 and next schedule is 10/21. Transport Truck Driver let her know she will have breast navigator look into this and let her know next week. Patient told this information will be shared with breast navigator and auto service writer did let Anyu know
--- NOTE | 2022-08-05 09:05 | ONC.NURNOTE ---
Call from patient to report concerns about abdominal distension and pain. She reports that starting Monday, her pain significantly increased. At first, she felt that it was related to her bowels and she has taken Miralax, Colace and Dulcolax. She has had small amounts of soft stool, is passing gas and can hear her stomach grumbling. She denies nausea or vomiting. She has transitioned to a soft diet but has no appetite. She rates the pain a 7 out of 10 in her upper abdomen, right side > left. She is reluctant to take her Oxycodone as she knows that it is very constipating. She is wondering what is causing this sudden increase in her pain. I told Donna that we do not have an oncologist in office today. I placed a call to her PCP requesting she be seen today for further evaluation. I informed Donna that if her PCP cannot see her, we would recommend evaluation in the ER. I also encouraged Donna to contact her palliative care team in [place] for assistance with symptom management. Donna verbalizes understanding of plan.
--- NOTE | 2022-08-08 16:44 | ONC.NURNOTE ---
Addendum entered by Zulema Fabian RN 08/16/22 07:57: Phone number edit: [phone] Original Note: Received call from pt reporting she was in the ED this weekend with worsening symptoms of ascites and abdominal pain. CT abd/pelv completed. Pt asking about being set up for paracentesis. Images/reports pushed to [facility]. Knife Operator coordinated with JAMES Manrique with Dr. Hester. Pt scheduled for paracentesis at [facility] 08/09 @0745. Plan to RTC for Joannayla this . Pt to update us of any changes. Hilaria with Dr. Hester ph: [phone] f: [phone]
[2022-08-11 08:28] VITALS: BP 87/62; PULSE 93; RESP 16; TEMP 35.9; O2SAT 97
[2022-08-11 08:46] LABS: Basophils Absolute Auto 0.05 K/uL (0.00-0.30); Basophils Percent Auto 0.5 % (0.0-3.0); Eosinophils Percent Auto 3.2 % (0.0-7.0); Hematocrit 40.9 % (33.0-51.0); Hemoglobin* 13.2 gm/dL (12.0-16.0); Immature Granulocytes Abs Auto 0.01 K/uL (0.00-0.30); Immature Granulocytes Pct Auto 0.1 %; Lymphocytes Percent Auto 12.1 % (20-44); Mean Corpuscular HGB Conc 32 gm/dL (32-36); Mean Corpuscular Hemoglobin 28 pg (26-34); Mean Corpuscular Volume 88 fL (80-100); Monocytes Percent Auto 7.7 % (0.0-11.0); Neutrophils Percent Auto 76.4 % (42.0-72.0); Platelet Count* 336 K/uL (140-440); RDW Coefficient of Variation % 16.2 % (11.5-15.5); Red Blood Count 4.64 m/uL (4.00-5.20); Slide Review Reflex No; White Blood Count* 9.28 K/uL (4.50-11.00)
[2022-08-11 09:08] LABS: Albumin* 3.2 g/dL (3.3-5.0); Chloride* 100 mmol/L (96-114); Potassium* 4.1 mmol/L (3.6-5.1); Sodium* 136 mmol/L (135-149)
[2022-08-11 09:10] LABS: Creatinine* 0.5 mg/dL (0.5-1.5); Est. Creatinine Clearance* 39.76; Estimated Glomerular Filt Rate 104 ml/min
[2022-08-11 09:11] LABS: Alanine Aminotransferase* 15 U/L (4-35); Alkaline Phosphatase* 72 U/L (40-150); Aspartate Amino Transferase* 46 U/L (12-35); Bilirubin Total* 0.5 mg/dL (0.1-1.5); Blood Urea Nitrogen* 15 mg/dL (7-30); Carbon Dioxide* 32 mmol/L (20-32); Glucose* 129 mg/dL (60-115); Total Protein* 6.2 g/dL (6.0-8.3)
[2022-08-11 09:12] LABS: Calcium* 8.9 mg/dL (8.4-10.6)
[2022-08-11 09:18] VITALS: BP 87/60; PULSE 97
[2022-08-11 09:21] VITALS: BP 82/57; PULSE 107
[2022-08-11] MEDS: ONDANSETRON 2 MG/ML inj 4 MG IVP (10:43)
[2022-08-11] MEDS: SODIUM CHLORIDE 0.9 % (FLUSH) 10 ML SYRINGE IVF (10:45)
[2022-08-11] MEDS: 0.9 % SODIUM CHLORIDE 250 ml IV (10:45)
[2022-08-11 12:25] VITALS: BP 75/51; PULSE 91
[2022-08-11 12:26] VITALS: BP 69/50; PULSE 97
--- NOTE | 2022-08-11 15:34 | ONC.NURNOTE ---
Pt here for C2 [place]; feeling overall much better after paracentesis at [facility] 08/09/22. Saw Clara Dean APRN today. BP's today varied 80's/50's on arrival with orthostatic checks; asymptomatic. Upon leaving BP 75/51 sitting and 69/50 standing; asymptomatic. Confirmed pt notified [facility] team of [facility]; discussion in progress via [facility] EMR. Nsg to f/u provider notes tomorrow.
[2022-08-15 14:40] LABS: Basophils Absolute Auto 0.03 K/uL (0.00-0.30); Basophils Percent Auto 0.3 % (0.0-3.0); Eosinophils Absolute Auto 0.01 K/uL (0.00-0.50); Eosinophils Percent Auto 0.1 % (0.0-7.0); Hematocrit 39.9 % (33.0-51.0); Immature Granulocytes Abs Auto 0.02 K/uL (0.00-0.30); Immature Granulocytes Pct Auto 0.2 %; Lymphocytes Percent Auto 10.3 % (20-44); Mean Corpuscular HGB Conc 33 gm/dL (32-36); Mean Corpuscular Hemoglobin 28 pg (26-34); Mean Corpuscular Volume 85 fL (80-100); Monocytes Percent Auto 8.5 % (0.0-11.0); Neutrophils Percent Auto 80.6 % (42.0-72.0); Platelet Count* 176 K/uL (140-440); RDW Coefficient of Variation % 15.8 % (11.5-15.5); Red Blood Count 4.68 m/uL (4.00-5.20); White Blood Count* 10.65 K/uL (4.50-11.00)
[2022-08-15 14:44] LABS: Slide Review Reflex No
[2022-08-15 14:46] LABS: Chloride* 94 mmol/L (96-114); Potassium* 5.4 mmol/L (3.6-5.1); Sodium* 129 mmol/L (135-149)
[2022-08-15 14:48] LABS: Creatinine* 1.7 mg/dL (0.5-1.5); Est. Creatinine Clearance* 23.39; Estimated Glomerular Filt Rate 33 ml/min
[2022-08-15 14:49] LABS: Blood Urea Nitrogen* 36 mg/dL (7-30); Calcium* 8.7 mg/dL (8.4-10.6); Carbon Dioxide* 28 mmol/L (20-32); Glucose* 93 mg/dL (60-115)
[2022-08-15] MEDS: 0.9 % SODIUM CHLORIDE 500 ML 500 ML IV (14:57)
[2022-08-15 16:05] VITALS: BP 72/51
[2022-08-15] MEDS: HEPARIN 500 UNIT/5 ML SYRINGE IVF (16:10)
[2022-08-15] MEDS: SODIUM CHLORIDE 0.9 % (FLUSH) 10 ML SYRINGE IVF (16:10)
--- NOTE | 2022-08-16 07:47 | ONC.NURNOTE ---
Received call 08/15 late morning from patient describing her abdominal distension has returned. She feels she is developing ascites again, however she is also working with Palliative Care to mange her bowels. Her last stool was a small stool on 08/12. Monday she took a 1/2 dose of Miralax and 1 Dulcolax. Monday she took a full dose of Miralax and 2 Dulcolax. She is continuing to take 1/4-1/2 tab oxycodone spread out over the day. Pt reviewed with Dr. Banda who recommended pt repeat Abd/Pelv CT to evaluate SBO vs ascites. Reviewed pt's situation with Clara Dean APRN; with further discussion with [facility] provider team on-site, Abd/Pelv CT ordered and completed. Results showed moderate to large areas of ascites. Pt to coordinate with H[facility]/Dr. Baeza for repeat paracentesis. Scan faxed and images pushed to [facility]; [facility] notified [facility]/Dr. Baeza.
== END 2022-08-16 23:59 | disposition home or self-care (01) ==
LOC: CCIC 14:01
PROVIDERS: Clinical Nurse Specialist; Nurse Practitioner Family; PCP Family Medicine; Referring Provider Family Medicine; Visit Provider Internal Medicine Hematology & Oncology
DX: C50.912 Malignant neoplasm of unspecified site of left female breast (principal); Z17.0 Estrogen receptor positive status [ER+]; R18.8 Other ascites
CPT/HCPCS: 36415; 36591; 70553; 74177; 80048; 80053; 85025; 96360; 96372; 96376; 96377; 96402; 96411; 96413; 96415; 99211; 99212; 99214; 99215; J2506; A9270; A9575; J1100; J1200; J1642; J2405; J2469; J7050; J7120; J9354; J9358; Q9967

== ENCOUNTER 2022-08-15 14:01 | Outpatient (CLI) | payer MEDICARE, SELFPAY ==
--- NOTE | 2022-08-15 15:00 | CRLHL7_ITS ---
For Patients: As a result of the Century Cures Act, medical imaging exams and procedure reports are released immediately into your electronic medical record. You may view this report before your referring provider. If you have questions, please contact your health care provider. INDICATION: Rule out obstruction versus ascites.. TECHNIQUE: CT abdomen and pelvis acquired with 49 cc Isovue 370 IV contrast. COMPARISON: August 05, 2022.. FINDINGS: Lower chest: Redemonstrated pleural thickening within the left lower lung zones with loculated left pleural effusion and volume loss within the left hemithorax marked by consolidation left lower lobe. This appears stable compared to the prior examination. Re- demonstrated central venous catheter terminating in the right atrium. Postsurgical changes from right mastectomy. Liver: Stable hypodense lesion in the left hepatic lobe. Gallbladder and bile ducts: Mild gallbladder wall thickening, similar to prior. No intra or extrahepatic biliary ductal dilatation identified. Pancreas: Unremarkable. No mass or inflammation. Spleen: Stable multiple hypodensities within the spleen measuring up to 11 millimeters. Adrenal glands: Unremarkable. No nodules. Kidneys: Stable large exophytic cyst in the anterior margin of the left kidney measuring up to 6.7 centimeters in diameter. No hydronephrosis or hydroureter. GI tract: Air-fluid levels identified within the large bowel which are mildly distended with stool. This may be related to diarrhea. No small bowel obstruction. Appendix is not well visualized. Vasculature: Abdominal aorta is normal in caliber. Mesenteric arteries are patent. Lymph nodes: No lymphadenopathy. Peritoneum/Abdominal Wall: Moderate large volume ascites. There is enhancement and nodularity of the peritoneum, similar to the prior examination. Significant omental caking with enhancing soft tissue nodules and small confluent masses. These findings appear similar to the prior examination. Redemonstrated left lower quadrant/adnexal calcification and adjacent soft tissue thickening along the peritoneum. Redemonstrated enlarged enhanced masses along the peritoneum in the pelvis. Pelvis: Post hysterectomy. Bladder is collapsed. Bones: Stable sclerotic lesion in the left ilium. Mild scoliosis. Multilevel degenerative changes. IMPRESSION: Moderate to large volume ascites, similar to prior exam. No evidence of bowel obstruction. Stable peritoneal and omental metastatic disease. Please note that all CT scans at this facility use dose modulation, iterative reconstruction, and/or weight-based dosing when appropriate to reduce radiation dose to as low as reasonably achievable. Dictated by Daniel Bain MD @ 08/15/2022 4:04:56 PM (Electronically Signed)
== END 2022-08-15 14:02 | disposition home or self-care (01) ==
LOC: CT 14:01
PROVIDERS: PCP Family Medicine; Visit Provider Clinical Nurse Specialist
DX: C50.912 Malignant neoplasm of unspecified site of left female breast (principal); R18.8 Other ascites; C78.6 Secondary malignant neoplasm of retroperitoneum and peritoneum
CPT/HCPCS: 74177; Q9967

== ENCOUNTER 2022-09-01 14:41 | Outpatient (RCR) | payer MEDICARE, SELFPAY ==
--- NOTE | 2022-08-19 12:58 | ONC.NURNOTE ---
Received phone call from patients daughterNatalie stating that patient would like to get information on our hospice program. Patient is currently admitted in [place], and plan for discharge is this weekend. Deadener contacted [facility] and she will reach out to primary care to fill out the paperwork. Spouse and daughter's phone numbers were given to hospice, and they will contact them this weekend. Julius: [phone] Becky: [phone]
--- NOTE | 2022-08-29 16:22 | ONC.NURNOTE ---
Addendum entered by Zulema Fabian RN 08/29/22 16:37: At discharge pt was set up with home care including PT/OT. She has not been contacted by them yet. Original Note: Spoke with pt today following dc from [facility] 08/26/22. Pt states she is very weak and feels like she has been hit by a truck, but is glad to be home and is focusing on her nutrition. She denies abdominal distension and tightness unless she eats; she is having regular bm's with new bowel regimen detailed in DC Summary. She is eating smoothies and soups. When in hospital she had an ileus which resolved with bowel rest. She is aware of her abdominal symptoms and will reach out to Palliative Care if feeling symptoms of ileus. If she feels like ascites is returning, she will contact Dr. Baeza/[facility] for coordinating for a paracentesis. Encouraged pt to call [facility] if need to troubleshoot her symptoms, and we will continue to advise and advocate for her as able. Pt was able to meet and hold her new grand daughter, Bouchra, born last week, which was a primary goal of care these last several weeks. Regarding upcoming appointments, per discussion pt needs to f/u with primary oncologist, Dr. Baeza, before resuming treatment at [facility], however we will continue to provide supportive care as recommended by her [facility] teams. [facility] appointments cancelled. She will contact Dr. Garcia, PCP tomorrow to schedule post-discharge f/u. Encouraged pt to reach out to [facility] Onc and Palliative teams as needed for sooner f/u than what was determined on discharge. [facility] appts in place include: 09/07/22 Palliative Care f/u 10/21/[address] [facility] f/u Dr. Baeza f/u
[2022-09-01 15:01] LABS: Eosinophils Absolute Auto 0.01 K/uL (0.00-0.50); Eosinophils Percent Auto 0.1 % (0.0-7.0); Hematocrit 35.7 % (33.0-51.0); Immature Granulocytes Abs Auto 0.03 K/uL (0.00-0.30); Immature Granulocytes Pct Auto 0.3 %; Lymphocytes Percent Auto 6.6 % (20-44); Mean Corpuscular HGB Conc 31 gm/dL (32-36); Mean Corpuscular Hemoglobin 29 pg (26-34); Mean Corpuscular Volume 93 fL (80-100); Monocytes Percent Auto 5.8 % (0.0-11.0); Neutrophils Percent Auto 87.2 % (42.0-72.0); Platelet Count* 206 K/uL (140-440); RDW Coefficient of Variation % 20.4 % (11.5-15.5); Red Blood Count 3.85 m/uL (4.00-5.20)
[2022-09-01 15:07] LABS: Slide Review Reflex No
[2022-09-01 15:17] LABS: Chloride* 97 mmol/L (96-114); Potassium* 4.7 mmol/L (3.6-5.1); Sodium* 133 mmol/L (135-149)
[2022-09-01 15:20] LABS: Blood Urea Nitrogen* 49 mg/dL (7-30); Carbon Dioxide* 31 mmol/L (20-32); Creatinine* 1.4 mg/dL (0.5-1.5); Estimated Glomerular Filt Rate 42 ml/min; Glucose* 141 mg/dL (60-115)
[2022-09-01 15:21] LABS: Calcium* 9.2 mg/dL (8.4-10.6)
== END 2022-09-09 23:59 | disposition home or self-care (01) ==
LOC: CCIC 14:41
PROVIDERS: PCP Family Medicine; Referring Provider Family Medicine; Visit Provider Internal Medicine Hematology & Oncology
DX: C50.912 Malignant neoplasm of unspecified site of left female breast (principal); Z17.0 Estrogen receptor positive status [ER+]; C79.31 Secondary malignant neoplasm of brain; R10.9 Unspecified abdominal pain; D70.1 Agranulocytosis secondary to cancer chemotherapy; G89.3 Neoplasm related pain (acute) (chronic)
CPT/HCPCS: 36415; 80048; 85025